=== PATIENT | male | born 1945 | race Caucasian/White ===

== ENCOUNTER 2020-09-06 08:25 | Outpatient (REF) | payer BC, SELFPAY ==
[2020-09-06 10:57] LABS: PSA,Total (Free>4and<10) 1.14 ng/mL (0.00-4.00)
[2020-09-06 11:03] LABS: Estimated Average Glucose 111 mg/dL; Hemoglobin A1c % 5.5 %
[2020-09-06 11:10] LABS: Creatinine Urine 92.01 mg/dL; Microalbumin Urine < 5.0 mg/L
[2020-09-06 11:22] LABS: Alanine Aminotransferase 19 U/L (0-40); Albumin Level 4.1 g/dL (3.5-5.0); Alkaline Phosphatase 55 U/L (39-117); Anion Gap 10 (12-20); Aspartate Amino Transferase 19 U/L (5-37); Bilirubin Total 0.6 mg/dL (0.0-1.0); Blood Urea Nitrogen 23 mg/dL (9-16); Calcium 8.7 mg/dL (8.4-10.2); Carbon Dioxide 30 mmol/L (22-29); Chloride 104 mmol/L (96-108); Cholesterol 200 mg/dL; Estimated Glomerular Filt Rate > 60; Glucose Fasting 102 mg/dL (60-99); HDL Cholesterol 54 mg/dL; LDL Cholesterol Calculated 131 mg/dl; Potassium 4.2 mmol/L (3.3-5.1); Sodium 140 mmol/L (135-145); Total Protein 6.7 g/dL (6.5-8.0); Triglycerides 78 mg/dL
[2020-09-06 11:30] LABS: TSH reflex Free T4 1.59 uIU/mL (0.32-4.0)
== END 2020-09-06 08:26 | disposition home or self-care (01) ==
LOC: HO.10HDL 08:25
PROVIDERS: Visit Provider Family Medicine
DX: Z00.00 Encounter for general adult medical examination without abnormal findings (principal); R73.01 Impaired fasting glucose; Z12.5 Encounter for screening for malignant neoplasm of prostate
CPT/HCPCS: 36415; 80053; 80061; 82043; 83036; 84153; 84443

== ENCOUNTER 2021-02-24 08:31 | Outpatient (REF) | payer BC, SELFPAY ==
[2021-02-24 11:06] LABS: Alanine Aminotransferase 16 U/L (0-40); Alkaline Phosphatase 55 U/L (39-117); Anion Gap 9 (12-20); Aspartate Amino Transferase 20 U/L (5-37); Bilirubin Total 0.8 mg/dL (0.0-1.0); Blood Urea Nitrogen 16 mg/dL (9-16); Calcium 8.9 mg/dL (8.4-10.2); Carbon Dioxide 30 mmol/L (22-29); Chloride 106 mmol/L (96-108); Cholesterol 184 mg/dL; Estimated Glomerular Filt Rate > 60; Glucose Fasting 110 mg/dL (60-99); HDL Cholesterol 58 mg/dL; LDL Cholesterol Calculated 116 mg/dl; Potassium 4.1 mmol/L (3.3-5.1); Sodium 141 mmol/L (135-145); Total Protein 6.4 g/dL (6.5-8.0); Triglycerides 52 mg/dL
[2021-02-24 11:27] LABS: TSH reflex Free T4 1.08 uIU/mL (0.32-4.0)
== END 2021-02-24 08:32 | disposition home or self-care (01) ==
LOC: HO.WFDLDS 08:31
PROVIDERS: Visit Provider Family Medicine
DX: Z00.00 Encounter for general adult medical examination without abnormal findings (principal); R73.03 Prediabetes
CPT/HCPCS: 36415; 80053; 80061; 84443

== ENCOUNTER 2021-10-24 08:21 | Outpatient (REF) | payer BC, SELFPAY ==
[2021-10-24 11:58] LABS: Estimated Average Glucose 114 mg/dL; Hemoglobin A1C 150.5851 umol/L; Hemoglobin A1c % 5.6 %
[2021-10-24 12:07] LABS: Alanine Aminotransferase 14 U/L (0-40); Alkaline Phosphatase 56 U/L (39-117); Anion Gap 9 (12-20); Aspartate Amino Transferase 15 U/L (5-37); Bilirubin Total 0.8 mg/dL (0.0-1.0); Blood Urea Nitrogen 20 mg/dL (9-16); Calcium 8.9 mg/dL (8.4-10.2); Carbon Dioxide 29 mmol/L (22-29); Chloride 108 mmol/L (96-108); Cholesterol 185 mg/dL; Estimated Glomerular Filt Rate > 60; Glucose Fasting 110 mg/dL (60-99); HDL Cholesterol 45 mg/dL; LDL Cholesterol Calculated 124 mg/dl; Potassium 4.1 mmol/L (3.3-5.1); Sodium 142 mmol/L (135-145); Total Protein 6.5 g/dL (6.5-8.0); Triglycerides 84 mg/dL
[2021-10-24 12:19] LABS: TSH reflex Free T4 1.27 uIU/mL (0.32-4.0)
== END 2021-10-24 08:22 | disposition home or self-care (01) ==
LOC: HO.WFDLDS 08:21
PROVIDERS: Visit Provider Family Medicine
DX: Z00.00 Encounter for general adult medical examination without abnormal findings (principal); R73.01 Impaired fasting glucose
CPT/HCPCS: 36415; 80053; 80061; 83036; 84443

== ENCOUNTER 2022-08-03 08:19 | Outpatient (REF) | payer BC, SELFPAY ==
[2022-08-03 11:34] LABS: Appearance Urine Clear; Color Urine Yellow; Glucose Urine UA Negative (Negative); Leukocyte Esterase Urine Negative (Negative); Nitrite Urine Negative (Negative); Urine Blood Negative (Negative); Urine Ketones Negative (Negative); Urine Protein Negative (Neg-Trace)
[2022-08-03 12:07] LABS: Creatinine Urine 127.05 mg/dL; Microalbum/Creatinine Ratio Ur 3.9 ug/mg cr
[2022-08-03 12:22] LABS: Alanine Aminotransferase 12 U/L (0-40); Alkaline Phosphatase 59 U/L (39-117); Anion Gap 12 (12-20); Aspartate Amino Transferase 19 U/L (5-37); Bilirubin Total 0.7 mg/dL (0.0-1.0); Blood Urea Nitrogen 19 mg/dL (9-16); Calcium 8.9 mg/dL (8.4-10.2); Carbon Dioxide 28 mmol/L (22-29); Chloride 106 mmol/L (96-108); Cholesterol 193 mg/dL; Estimated Glomerular Filt Rate > 60; Glucose Fasting 100 mg/dL (60-99); HDL Cholesterol 52 mg/dL; LDL Cholesterol Calculated 126 mg/dl; Potassium 4.7 mmol/L (3.3-5.1); Sodium 141 mmol/L (135-145); Total Protein 6.4 g/dL (6.5-8.0); Triglycerides 76 mg/dL
== END 2022-08-03 08:20 | disposition home or self-care (01) ==
LOC: HO.WFDLDS 08:19
PROVIDERS: Visit Provider Family Medicine
DX: Z00.00 Encounter for general adult medical examination without abnormal findings (principal); I10 Essential (primary) hypertension; Z12.5 Encounter for screening for malignant neoplasm of prostate
CPT/HCPCS: 36415; 80053; 80061; 81003; 82043; 84153; 84443

== ENCOUNTER 2023-03-23 08:22 | Outpatient (REF) | payer MEDICARE, BC, SELFPAY ==
[2023-03-23 11:16] LABS: MANUAL DIFF FLAG NO
[2023-03-23 11:32] LABS: Basophils Absolute Auto 0.1 X10*3/uL (0.0-0.2); Basophils Percent Auto 0.9 % (0-2); Eosinophils Absolute Auto 0.1 X10*3/uL (0.0-0.4); Eosinophils Percent Auto 1.8 % (0-4); Hematocrit 44.8 % (42.0-52.0); Hemoglobin 15.1 g/dl (14.0-18.0); Imm Gran Abs Auto 0.01 X10*3/uL (0.00-0.03); Imm Gran Pct Auto 0.2 % (0.0-0.4); Lymphocytes Percent Auto 17.3 % (20-40); Mean Corpuscular HGB Conc 33.7 g/dl (31.0-36.0); Mean Corpuscular Hemoglobin 31.9 pg (27.0-33.0); Mean Corpuscular Volume 94.5 fL (80.0-98.0); Mean Platelet Volume 9.2 fL (9.4-12.4); Monocytes Absolute Auto 0.5 X10*3/uL (0.1-1.2); Neutrophils Percent Auto 71.8 % (45-73); Platelet Count 207 X10*3/uL (160-400); Red Blood Count 4.74 X10*6/uL (4.60-5.80); Red Cell Distribution Width 12.7 % (11.0-16.0); White Blood Count 5.6 X10*3/uL (4.8-10.8)
[2023-03-23 12:26] LABS: Prostate Specific Antigen 1.33 ng/mL (<0.05-4.0)
[2023-03-23 12:36] LABS: Estimated Average Glucose 108 mg/dL; Hemoglobin A1c % 5.4 % (<6.0)
[2023-03-23 12:44] LABS: Alanine Aminotransferase 13 U/L (0-40); Albumin Level 3.9 g/dL (3.5-5.0); Alkaline Phosphatase 58 U/L (39-117); Anion Gap 13 (12-20); Aspartate Amino Transferase 16 U/L (5-37); Bilirubin Total 0.7 mg/dL (0.0-1.0); Blood Urea Nitrogen 18 mg/dL (9-16); Calcium 9.1 mg/dL (8.4-10.2); Carbon Dioxide 27 mmol/L (22-29); Chloride 106 mmol/L (96-108); Cholesterol 187 mg/dL (<200); Estimated Glomerular Filt Rate > 60; Glucose Random 108 mg/dL (60-115); HDL Cholesterol 54 mg/dL (>40); LDL Cholesterol Calculated 118 mg/dL (<100); Potassium 4.8 mmol/L (3.3-5.1); Sodium 141 mmol/L (135-145); Total Protein 6.6 g/dL (6.5-8.0); Triglycerides 79 mg/dL (<150)
[2023-03-23 13:00] LABS: Free T4 (Free Thyroxine) 0.84 ng/dL (0.71-1.85); Thyroid Stimulating Hormone 1.28 uIU/mL (0.32-4.0)
[2023-03-23 13:07] LABS: Creatinine Urine 151.59 mg/dL; Microalbumin Urine < 5.0 mg/L
== END 2023-03-23 08:23 | disposition home or self-care (01) ==
LOC: HO.WFDLDS 08:22
PROVIDERS: Visit Provider Family Medicine
DX: Z20.2 Contact with and (suspected) exposure to infections with a predominantly sexual mode of transmission (principal); Z12.5 Encounter for screening for malignant neoplasm of prostate
CPT/HCPCS: 36415; 80053; 80061; 82043; 83036; 84153; 84439; 84443; 84481; 85025

== ENCOUNTER 2023-03-29 10:38 | Outpatient (AMB) | payer BC, SELFPAY ==
--- NOTE | 2023-03-29 10:48 | MHC.PC.OV ---
Vital Signs 03/29/23 10:49 Height 5 ft 8 in Weight 171 lb BMI 26.0 Intake Visit Reasons: CPE with f/u labs and health maint. Allergies No Known Allergies [No Known Allergies*] Allergy (Verified 08/07/22 11:22) Tobacco use date assessed: 10/31/21 [facility] Surgical History History of eye surgery History of tonsillectomy Tear of meniscus of left knee Family History Father Parkinsons Mother Seizure Cerebral hemorrhage Brother Diabetes mellitus Sister Asthma Son No problems noted. Son No problems noted. Social History Housing: House Patient Tobacco Use Status: Never used Tobacco e-Cigarette/Vaping Use: Never Used Second Hand Smoke Exposure: No service: Yes Current occupational status: retired Current occupational exposures/hazards: No Cognitive needs: No Hearing needs: No Vision needs: No Questionnaire Thrive Questionnaire Date Thrive assessed: 08/07/22 TIFFANIE-7 AMB Questionnaire TIFFANIE-7 Date TIFFANIE - 7 assessed: 08/07/22 Source: Developed by Drs. Carlos Enrique Smith, Stella Bautista, Agus Willoughby and colleagues, with an educational frederick from [employer]. Physical exam (Primary Care) Tobacco/Smoking Status: Tobacco use Status Tobacco use date assessed 10/31/21 08/07/22 11:24 Patient Tobacco Use Status Never used Tobacco 08/07/22 11:24 e-Cigarette/Vaping Use Never Used 08/07/22 11:24 Thrive Assessment: Date of Thrive Assessment Date Thrive assessed 08/07/22 08/07/22 11:34 Coding Diagnoses
[2023-03-29 10:49] VITALS: BP 132/70; PULSE 68; O2SAT 99; BMI 26.0
--- NOTE | 2023-03-29 10:49 | MHC.PC.OV ---
Vital Signs 03/29/23 10:49 Height 5 ft 8 in Weight 171 lb BMI 26.0 BP 132/70 Blood Pressure Location Rt brachial Position Sitting Pulse 68 Pulse Source Pulse Oximeter Pulse Oximetry (%) 99 Oxygen Delivery Method Room Air Intake Visit Reasons: CPE with f/u labs and health maint. Intake Note: Patient is here for physical today. Allergies No Known Allergies [No Known Allergies*] Allergy (Verified 03/29/23 10:51) Tobacco use date assessed: 03/29/23 Fall risk assessment: No Falls in past year Last assessed Fall Risk: 03/29/23 Dental Screening Dental Screen Date: 03/29/23 Did you have a dental visit in the last 12 months?: Yes Did you have a dental problem in the last 6 months where you did not have access to dental care?: No Was dental information given to patient?: Patient has dentist HPI CPE with f/u labs and health maint. HPI Details 78 y/o male presents for a CPE with f/u labs and health maintenance. Labs were drawn 03/23/23. Reviewed labs with pt. A1c 5.4% - last A1c had been 5.7% in July. Triglycerides 79. TC 187. LDL 118. HDL 54. He is on pravastatin 40mg daily. Pt reports ear discomfort/itchiness in his ears. Pt reports complications last time he had a colonoscopy - he reports he had stopped breathing. [facility] Surgical History History of eye surgery History of tonsillectomy Tear of meniscus of left knee Family History Father Parkinsons Mother Seizure Cerebral hemorrhage Brother Diabetes mellitus Sister Asthma Son No problems noted. Son No problems noted. Social History Housing: House Patient Tobacco Use Status: Never used Tobacco e-Cigarette/Vaping Use: Never Used Second Hand Smoke Exposure: No service: Yes Current occupational status: retired Current occupational exposures/hazards: No Cognitive needs: No Hearing needs: No Vision needs: No Questionnaire Thrive Questionnaire Date Thrive assessed: 08/07/22 TIFFANIE-7 AMB Questionnaire TIFFANIE-7 Date TIFFANIE - 7 assessed: 01/09/23 Source: Developed by Drs. Carlos Enrique Smith, Stella Bautista, Agus Willoughby and colleagues, with an educational frederick from [employer]. Review of Systems Const Denies chills, Denies fatigue, Denies fever(s), Denies headache(s) and Denies weakness Eyes Denies change in vision ENT Denies dizziness, Denies headache(s), Denies hearing loss, Denies nasal congestion, Denies sinus pain, Denies sinus pressure and Denies sore throat Card Denies chest pain, Denies lightheadedness, Denies dyspnea and Denies other (palpitations) Resp Denies cough, Denies dyspnea and Denies wheezing GI Denies abdominal pain, Denies melena, Denies hematochezia, Denies change in bowel habits, Denies dyspepsia and Denies nausea Denies hematuria and Denies dysuria Musc Denies abnormal gait, Denies myalgias, Denies arthralgias, Denies numbness and Denies tingling Skin/Breast Denies rash, Denies unusual bruising and Denies wounds Neuro Denies abnormal gait, Denies dizziness, Denies headache(s), Denies memory loss, Denies numbness, Denies Sensory deficit (Neuro), Denies tingling and Denies weakness Psych Denies anxiety, Denies depression and Denies memory loss Endo Denies cold intolerance, Denies fatigue, Denies heat intolerance, Denies polydipsia and Denies polyuria Melvin/Lymph Denies easy bleeding and Denies easy bruising Aller/Immun Denies wheezing Physical exam (Primary Care) Vital Signs: Last Vital Signs Pulse 68 03/29/23 10:49 BP 132/70 03/29/23 10:49 Pulse Ox 99 03/29/23 10:49 Oxygen Delivery Method Room Air 03/29/23 10:49 BMI result Body Mass Index 26.0 Tobacco/Smoking Status: Tobacco use Status Tobacco use date assessed 03/29/23 03/29/23 10:56 Patient Tobacco Use Status Never used Tobacco 03/29/23 10:56 e-Cigarette/Vaping Use Never Used 03/29/23 10:56 Thrive Assessment: Date of Thrive Assessment Date Thrive assessed 08/07/22 03/29/23 10:56 Const General: no acute distress, well developed, alert and awake Nutritional Appearance: well nourished Orientation/consciousness: patient oriented x3 HENMT Head: Yes normocephalic and Yes atraumatic Ears: hearing grossly normal bilaterally and TM's normal bilaterally General nose exam: Normal external nose present and Normal nares present Mouth: Normal oral and palatal mucosa present and moist mucous membranes Teeth and gingiva: dentition normal Throat: Yes posterior oropharynx normal Eyes General: appearance normal, both eyes and all related structures Pupils: Equal, round and reactive pupils present and Pupil accommodation reflex normal EOM: EOMs intact bilaterally Neck Neck: Yes normal visual inspection, Yes no lymphadenopathy and Yes trachea midline Thyroid: Thyroid normal Carotids: no bruits Lymphatic: no lymphadenopathy noted Chest Chest palpation & inspection: normal inspection of the chest Resp Effort & Inspection: normal respiratory effort Auscultation: clear to auscultation bilaterally Cardio Rate: regular rate Rhythm: regular rhythm Heart sounds: S1 normal heart sound present, S2 normal heart sound present, no gallops, no murmurs and no rubs Bruits: no abdominal aortic bruits and no carotid bruits GI Palpation (GI): No Abdominal aortic bruit present, Soft to palpation, nontender, No hepatosplenomegaly present and No Rebound tenderness present Auscultation: normal bowel sounds General: Yes no CVA tenderness Back/Spine/Pelvis Back: no CVA tenderness Cervical Spine: cervical ROM normal and No Cervical spine tenderness Thoracic/Lumbar Spine: thoraco-lumbar ROM normal, No pain with thoraco-lumbar ROM, No thoracic spinal tenderness and No lumbar spinal tenderness Skin Lesions: no lesions Rashes: no rashes Trauma: no lacerations or abrasions Wounds: no wounds Nails: normal Neuro General: patient oriented x3 Cranial nerves: Yes Equal, round and reactive pupils present Cognition (Neuro): normal cognition Gait exam (Neuro): Normal gait present Motor exam (neuro): 5/5 motor strength present throughout Sensory Exam: No Sensory deficit (Neuro) Deep tendon reflexes (DTR's): Right patellar reflex intensity grade: 2+ and Left patellar reflex intensity grade: 2+ Extrem General: Yes normal to inspection and No edema Psych Appearance: grossly normal Affect: normal affect Attitude: cooperative Thought process: Normal thought process present Assessment and Plan Assessment & Plan (1) Annual physical exam: Code(s): Z00.00 - Encounter for general adult medical examination without abnormal findings Plan: 78-year-old male presents for complete physical exam Encouraged a healthy diet with active lifestyle and plenty of exercise (2) Pre-diabetes: Code(s): R73.03 - Prediabetes Plan: A1c is improved Continue diet low in sugars and starches. Continue weight control and exercise (3) Elevated LDL cholesterol level: Code(s): E78.00 - Pure hypercholesterolemia, unspecified Plan: Well controlled on pravastatin Continue medication as prescribed (4) Ear discomfort: Code(s): H92.09 - Otalgia, unspecified ear Plan: He can try Debrox drops or 50/50 dilute hydrogen peroxide with some drops of baby oil in it If not improving, he can let me know and we will evaluate further and consider prescription medication (5) Screening for colon cancer: Code(s): Z12.11 - Encounter for screening for malignant neoplasm of colon Plan: Followed by [facility] [place] GI History of polyps Follow-up with GI as recommended (6) Screening for prostate cancer: Code(s): Z12.5 - Encounter for screening for malignant neoplasm of prostate Plan: PSA is within normal limits Orders: Orders Comprehensive [place]. Panel Fast Today Z00.00 - Encounter for general adult medical examination without abnormal findings Lipid Panel Today Z00.00 - Encounter for general adult medical examination without abnormal findings Microalbumin, Random (w Creat) Today I10 - Essential (primary) hypertension Complete Blood Count Auto Diff Today Z00.00 - Encounter for general adult medical examination without abnormal findings UA and rflx microscopic Today Z00.00 - Encounter for general adult medical examination without abnormal findings Coding Level of Care Code Est Pt Level 3 (52712) Est Pt Prev Care >65y(80948) Diagnoses Annual physical exam Z00.00 Pre-diabetes R73.03 Elevated LDL cholesterol level E78.00 Ear discomfort H92.09 Screening for colon cancer Z12.11 Screening for prostate cancer Z12.5
== END 2023-03-29 11:54 | disposition home or self-care (01) ==
PROVIDERS: PCP Family Medicine; Visit Provider Family Medicine
DX: Z00.00 Encounter for general adult medical examination without abnormal findings (principal); R73.03 Prediabetes; E78.00 Pure hypercholesterolemia, unspecified; H92.03 Otalgia, bilateral
CPT/HCPCS: 99397

== ENCOUNTER 2023-09-10 08:53 | Outpatient (REF) | payer BC, SELFPAY ==
[2023-09-10 11:25] LABS: MANUAL DIFF FLAG NO
[2023-09-10 11:42] LABS: Appearance Urine Clear; Color Urine Yellow; Glucose Urine UA Negative (Negative); Leukocyte Esterase Urine Negative (Negative); Nitrite Urine Negative (Negative); Specific Gravity - Urine 1.025 (1.005-1.025); Urine Blood Negative (Negative); Urine Ketones Negative (Negative); Urine Protein Negative (Neg-Trace)
[2023-09-10 12:05] LABS: Basophils Percent Auto 0.7 % (0-2); Eosinophils Absolute Auto 0.1 X10*3/uL (0.0-0.4); Eosinophils Percent Auto 2.3 % (0-4); Hematocrit 45.2 % (42.0-52.0); Hemoglobin 15.3 g/dl (14.0-18.0); Imm Gran Abs Auto 0.01 X10*3/uL (0.00-0.03); Imm Gran Pct Auto 0.2 % (0.0-0.4); Lymphocytes Absolute Auto 1.1 X10*3/uL (1.2-4.9); Lymphocytes Percent Auto 19.1 % (20-40); Mean Corpuscular HGB Conc 33.8 g/dl (31.0-36.0); Mean Corpuscular Hemoglobin 31.9 pg (27.0-33.0); Mean Corpuscular Volume 94.4 fL (80.0-98.0); Mean Platelet Volume 9.3 fL (9.4-12.4); Monocytes Absolute Auto 0.5 X10*3/uL (0.1-1.2); Monocytes Percent Auto 8.2 % (2-11); Neutrophils Absolute Auto 4.2 x10*3/uL (2.0-8.3); Neutrophils Percent Auto 69.5 % (45-73); Platelet Count 229 X10*3/uL (160-400); Red Blood Count 4.79 X10*6/uL (4.60-5.80); Red Cell Distribution Width 12.8 % (11.0-16.0)
[2023-09-10 12:39] LABS: Creatinine Urine 146.41 mg/dL; Microalbum/Creatinine Ratio Ur 4.7 ug/mg cr (<30)
[2023-09-10 12:56] LABS: Alanine Aminotransferase 13 U/L (0-40); Albumin Level 3.9 g/dL (3.5-5.0); Alkaline Phosphatase 56 U/L (39-117); Anion Gap 13 (12-20); Aspartate Amino Transferase 15 U/L (5-37); Bilirubin Total 0.5 mg/dL (0.0-1.0); Blood Urea Nitrogen 18 mg/dL (9-16); Calcium 9.1 mg/dL (8.4-10.2); Carbon Dioxide 29 mmol/L (22-29); Chloride 106 mmol/L (96-108); Cholesterol 184 mg/dL (<200); Estimated Glomerular Filt Rate > 60; Glucose Fasting 97 mg/dL (60-99); HDL Cholesterol 48 mg/dL (>40); LDL Cholesterol Calculated 114 mg/dL (<100); Potassium 4.5 mmol/L (3.3-5.1); Sodium 143 mmol/L (135-145); Total Protein 6.8 g/dL (6.5-8.0); Triglycerides 110 mg/dL (<150)
== END 2023-09-10 08:54 | disposition home or self-care (01) ==
LOC: HO.WFDLDS 08:53
PROVIDERS: Visit Provider Family Medicine
DX: Z00.00 Encounter for general adult medical examination without abnormal findings (principal); I10 Essential (primary) hypertension
CPT/HCPCS: 36415; 80053; 80061; 81003; 82043; 82570; 85025

== ENCOUNTER 2023-09-12 10:58 | Outpatient (AMB) | payer BC, SELFPAY ==
[2023-09-12 11:25] VITALS: BP 138/78; PULSE 76; O2SAT 98; BMI 27.1
--- NOTE | 2023-09-12 11:25 | A.OFFPC_ITS ---
Vital Signs 09/12/23 11:25 Height 5 ft 8 in Weight 178 lb BMI 27.1 BP 138/78 Blood Pressure Location Lt brachial Position Sitting Pulse 76 Pulse Source Pulse Oximeter Pulse Oximetry (%) 98 Oxygen Delivery Method Room Air Intake Visit Reasons: f/u chronic conditions Intake Note: Patient is here to follow up on chronic conditions. Allergies No Known Allergies [No Known Allergies*] Allergy (Verified 09/12/23 11:27) Tobacco use date assessed: 09/12/23 Fall risk assessment: 1 Fall in past year Last assessed Fall Risk: 09/12/23 Dental Screening Dental Screen Date: 09/12/23 Did you have a dental visit in the last 12 months?: Yes Did you have a dental problem in the last 6 months where you did not have access to dental care?: No Was dental information given to patient?: Patient has dentist HPI f/u chronic conditions HPI Details 78 y/o male [facility]. Labs were drawn 09/10/23. Reviewed labs with pt. Triglycerides 110. TC 184. LDL 114. HDL 48. He is on pravastatin 40mg daily. [facility] Surgical History Tear of meniscus of left knee History of tonsillectomy History of eye surgery Family History Father Parkinsons Mother Seizure Cerebral hemorrhage Brother Diabetes mellitus Sister Asthma Son No problems noted. Son No problems noted. Social History Housing: House Patient Tobacco Use Status: Never used Tobacco e-Cigarette/Vaping Use: Never Used Second Hand Smoke Exposure: No service: Yes Current occupational status: retired Current occupational exposures/hazards: No Cognitive needs: No Hearing needs: No Vision needs: No Questionnaire PHQ-9 Over the last 2 weeks, how often have you been bothered by any of the following problems? 1. Little interest or pleasure in doing things: not at all 2. Feeling down, depressed, or hopeless: not at all 3. Trouble falling or staying asleep, or sleeping too much: not at all 4. Feeling tired or having little energy: not at all 5. Poor appetite or overeating: not at all 6. Feeling bad about yourself - or that you are a failure or have let yourself or your family down: not at all 7. Trouble concentrating on things, such as reading the newspaper or watching television: not at all 8. Moving or speaking so slowly that other people could have noticed. Or the opposite - being so fidgety or restless that you have been moving around a lot more than usual: not at all 9. Thoughts that you would be better off or of hurting yourself in some way: not at all Total score: 0 Depression Screening Interpretation: Negative Depression Screening Done: Yes [id number] - PHQ-9 Billing: Yes Source: Developed by Drs. Carlos Enrique Smith, Stella Bautista, Agus Willoughby and colleagues, with an educational frederick from [employer]. Thrive Questionnaire Date Thrive assessed: 08/07/22 I am a: Patient What is your living situation today?: I have a steady place to live Within the past 12 months, did the food you bought not last and you didn't have the money to get more?: Never true Within the past 12 months, did you worry whether your food would run out before you got money to buy more?: Never true Do you have trouble paying for medicines?: No Do you have trouble getting transportation to medical appointments?: No Do you have trouble paying your heating and electricity bill?: No Do you have trouble taking care of your child, family member or friend?: No Do you have trouble with day-to-day activities such as bathing, preparing meals, shopping, managing finances, etc.?: No Are you currently unemployed and looking for a job?: No Are you interested in more education?: No THRIVE Score: 0 AUDIT C Alcohol Use Questionnaire (AUDIT-C) 1. How often do you have a drink containing alcohol?: Monthly or less 2. How many drinks containing alcohol do you have on a typical day when you are drinking?: 1 or 2 3. How often do you have six or more drinks on one occasion?: Never Total Score: 1 TIFFANIE-7 AMB Questionnaire TIFFANIE-7 Date TIFFANIE - 7 assessed: 09/12/23 Feeling nervous, anxious, or on edge: 0 = Not at all Not being able to stop or control worryin = Not at all Worrying too much about different things: 0 = Not at all Trouble relaxin = Not at all Being so restless that it is hard to sit still: 0 = Not at all Becoming easily annoyed or irritable: 0 = Not at all Feeling afraid as if something awful might happen: 0 = Not at all Total TIFFANIE-7 score (0-4 normal; 5-9 mild; 10-14 moderate; 15-21 severe): 0 Source: Developed by Drs. Carlos Enrique Smith, Stella Bautista, Agus Willoughby and colleagues, with an educational frederick from [employer]. TIFFANIE-7 Assessment Billing TIFFANIE-7 Assessment Tool: TIFFANIE-7 Assessment [id number] Review of Systems Const Denies chills, Denies fatigue, Denies fever(s), Denies headache(s) and Denies weakness ENT Denies dizziness and Denies headache(s) Card Denies chest pain, Denies lightheadedness, Denies dyspnea and Denies other (Pa lpitations) Resp Denies cough, Denies dyspnea, Denies wheezing and Denies other ( shortness of breath) Musc Denies numbness and Denies tingling Neuro Denies dizziness, Denies headache(s), Denies numbness, Denies tingling, Denies paresthesias and Denies weakness Psych Denies anxiety and Denies depression Endo Denies fatigue Aller/Immun Denies wheezing Physical exam (Primary Care) Vital Signs: Last Vital Signs Pulse 76 09/12/23 11:25 BP 138/78 09/12/23 11:25 Pulse Ox 98 09/12/23 11:25 Oxygen Delivery Method Room Air 09/12/23 11:25 BMI result Body Mass Index 27.1 Tobacco/Smoking Status: Tobacco use Status Tobacco use date assessed 09/12/23 09/12/23 11:28 Patient Tobacco Use Status Never used Tobacco 09/12/23 11:28 e-Cigarette/Vaping Use Never Used 09/12/23 11:28 PHQ-9: PHQ-9 Score PHQ-9: Total score 0 09/12/23 12:13 Depression Screening Interpretation: Negative Thrive Assessment: Date of Thrive Assessment Date Thrive assessed 08/07/22 09/12/23 11:28 Const General: no acute distress and well developed Nutritional Appearance: well nourished Orientation/consciousness: patient oriented x3 [facility] Head: Yes normocephalic and Yes atraumatic Eyes General: appearance normal, both eyes and all related structures Pupils: Equal, round and reactive pupils present EOM: EOMs intact bilaterally Resp Effort & Inspection: normal respiratory effort Auscultation: clear to auscultation bilaterally Cardio Rate: regular rate Rhythm: regular rhythm Heart sounds: S1 normal heart sound present, S2 normal heart sound present, no gallops, no murmurs and no rubs Neuro General: patient oriented x3 and gait normal Cranial nerves: Yes Equal, round and reactive pupils present Psych Affect: normal affect Assessment and Plan Assessment & Plan (1) Elevated LDL cholesterol level: Code(s): E78.00 - Pure hypercholesterolemia, unspecified Plan: Well?controlled?on?pravastatin Continue?current?medication (2) Elevated BP without diagnosis of hypertension: Code(s): R03.0 - Elevated blood-pressure reading, without diagnosis of hypertension Plan: Blood?pressure?is?controlled.??Goal?is?less?than?140/90 Continue?diet?control,?watch?salt?and?sodium?a nd?work?on?exercise?and?weight?control. Patient?gained?about?7?lb?and?he?will?work?on?this Orders: Orders TSH reflex Free T4 Today Z00.00 - Encounter for general adult medical examination without abnormal findings Lipid Panel Today Z00.00 - Encounter for general adult medical examination without abnormal findings Complete Blood Count Auto Diff Today Z00.00 - Encounter for general adult medical examination without abnormal findings Prostate Specific Antigen Scr Today Z12.5 - Encounter for screening for malignant neoplasm of prostate Comprehensive [place]. Panel Fast Today Z00.00 - Encounter for general adult medical examination without abnormal findings Hemoglobin A1c Today R73.01 - Impaired fasting glucose UA and rflx microscopic Today Z00.00 - Encounter for general adult medical examination without abnormal findings Medications: Refilled sildenafil administer 30 minutes to 4 hours before activity 100 mg PO DAILY PRN 30 tabs 4RF sexual activity 30 days omeprazole 20 mg PO DAILY 90 caps 3RF 90 days pravastatin 40 mg PO DAILY 90 tabs 3RF 90 days Coding Level of Care Code Est Pt Level 3 (47025) Diagnoses Elevated LDL cholesterol level E78.00 Elevated BP without diagnosis of hypertension R03.0 Additional Codes TIFFANIE-7 Assessment Billing - TIFFANIE-7 Assessment Tool: TIFFANIE-7 Assessment [id number] ([id number])
== END 2023-09-12 12:28 | disposition home or self-care (01) ==
PROVIDERS: PCP Family Medicine; Visit Provider Family Medicine
DX: E78.00 Pure hypercholesterolemia, unspecified (principal); R03.0 Elevated blood-pressure reading, without diagnosis of hypertension
CPT/HCPCS: 99213

== ENCOUNTER 2024-03-28 11:29 | Outpatient (REF) | payer BC, SELFPAY ==
[2024-03-28 14:43] LABS: Appearance Urine Clear; Color Urine Yellow; Glucose Urine UA Negative (Negative); Leukocyte Esterase Urine Negative (Negative); Nitrite Urine Negative (Negative); Urine Blood Negative (Negative); Urine Ketones Negative (Negative); Urine Protein Negative (Neg-Trace)
[2024-03-28 14:51] LABS: MANUAL DIFF FLAG NO
[2024-03-28 14:54] LABS: Basophils Absolute Auto 0.1 X10*3/uL (0.0-0.2); Eosinophils Absolute Auto 0.1 X10*3/uL (0.0-0.4); Eosinophils Percent Auto 1.9 % (0-4); Hematocrit 45.4 % (42.0-52.0); Hemoglobin 15.7 g/dl (14.0-18.0); Imm Gran Abs Auto 0.01 X10*3/uL (0.00-0.03); Imm Gran Pct Auto 0.2 % (0.0-0.4); Lymphocytes Absolute Auto 1.3 X10*3/uL (1.2-4.9); Lymphocytes Percent Auto 23.3 % (20-40); Mean Corpuscular HGB Conc 34.6 g/dl (31.0-36.0); Mean Corpuscular Hemoglobin 32.6 pg (27.0-33.0); Mean Corpuscular Volume 94.4 fL (80.0-98.0); Mean Platelet Volume 9.3 fL (9.4-12.4); Monocytes Absolute Auto 0.5 X10*3/uL (0.1-1.2); Neutrophils Absolute Auto 3.8 x10*3/uL (2.0-8.3); Neutrophils Percent Auto 65.6 % (45-73); Platelet Count 223 X10*3/uL (160-400); Red Blood Count 4.81 X10*6/uL (4.60-5.80); Red Cell Distribution Width 12.5 % (11.0-16.0); White Blood Count 5.7 X10*3/uL (4.8-10.8)
[2024-03-28 15:15] LABS: Alanine Aminotransferase 15 U/L (0-40); Albumin Level 4.1 g/dL (3.5-5.0); Alkaline Phosphatase 52 U/L (39-117); Anion Gap 11 (12-20); Aspartate Amino Transferase 19 U/L (5-37); Bilirubin Total 0.7 mg/dL (0.0-1.0); Blood Urea Nitrogen 16 mg/dL (9-16); Calcium 9.4 mg/dL (8.4-10.2); Carbon Dioxide 28 mmol/L (22-29); Chloride 106 mmol/L (96-108); Cholesterol 184 mg/dL (<200); Estimated Glomerular Filt Rate > 60; Glucose Fasting 103 mg/dL (60-99); HDL Cholesterol 54 mg/dL (>40); LDL Cholesterol Calculated 115 mg/dL (<100); Potassium 4.4 mmol/L (3.3-5.1); Sodium 141 mmol/L (135-145); Total Protein 6.8 g/dL (6.5-8.0); Triglycerides 77 mg/dL (<150)
[2024-03-28 15:20] LABS: Estimated Average Glucose 117 mg/dL; Hemoglobin A1c % 5.7 % (<6.0)
[2024-03-28 15:26] LABS: Prostate Specific Antigen Scr 1.33 ng/mL (<0.05-4.0)
[2024-03-28 15:33] LABS: TSH reflex Free T4 1.02 uIU/mL (0.32-4.0)
== END 2024-03-28 11:30 | disposition home or self-care (01) ==
LOC: HO.WFDLDS 11:29
PROVIDERS: Visit Provider Family Medicine
DX: Z00.00 Encounter for general adult medical examination without abnormal findings (principal); Z12.5 Encounter for screening for malignant neoplasm of prostate; R73.01 Impaired fasting glucose
CPT/HCPCS: 36415; 80053; 80061; 81003; 83036; 84153; 84443; 85025

== ENCOUNTER 2024-04-01 08:52 | Outpatient (AMB) | payer BC, SELFPAY ==
--- NOTE | 2024-04-01 08:59 | A.OFFPC_ITS ---
Vital Signs 04/01/24 09:06 Height 5 ft 8 in Weight 176 lb 8 oz BMI 26.8 BP 120/60 Blood Pressure Location Lt brachial Position Sitting Respiration 12 Pulse 80 Pulse Source Pulse Oximeter Temp 97.5 F Temp Source Tympanic Pulse Oximetry (%) 97 Oxygen Delivery Method Room Air Intake Visit Reasons: extended?exam??follow-up?labs?health?maintenance Intake Note: CPE Allergies No Known Allergies [No Known Allergies*] Allergy (Verified 04/01/24 09:01) Tobacco use date assessed: 04/01/24 Fall risk assessment: No Falls in past year Last assessed Fall Risk: 04/01/24 Dental Screening Dental Screen Date: 04/01/24 Did you have a dental visit in the last 12 months?: Yes Did you have a dental problem in the last 6 months where you did not have access to dental care?: No Was dental information given to patient?: Patient has dentist HPI extended?exam??follow-up?labs?health?maintenance HPI Details 79 y/o male presents for a CPE with f/u labs and health maintenance. Labs were drawn 03/28/24. Reviewed labs with pt. A1c 5.7%. Triglycerides 77. TC 184. LDL 115. HDL 54. PSA 1.33. TSH 1.02. HPI Comments History of Present Illness Details Documentation assistance for Alton Vegas MD, was provided by Williams Augustin, Transit Driver on 04/01/2024 at 9:21 AM EST. I, Dr. Vegas, have read, observed, and verified documentation. [facility] Surgical History Tear of meniscus of left knee History of tonsillectomy History of eye surgery Family History Father Parkinsons Mother Seizure Cerebral hemorrhage Brother Diabetes mellitus Sister Asthma Son No problems noted. Son No problems noted. Social History (Updated 04/01/24 @ 09:04 by Chilo Chaparro) Housing: House Patient Tobacco Use Status: Never used Tobacco e-Cigarette/Vaping Use: Never Used Second Hand Smoke Exposure: No Use of substances other than those prescribed or required for medical reasons: No service: Yes Current occupational status: retired Current occupational exposures/hazards: No Cognitive needs: No Hearing needs: No Vision needs: No Questionnaire PHQ-9 Over the last 2 weeks, how often have you been bothered by any of the following problems? 1. Little interest or pleasure in doing things: not at all 2. Feeling down, depressed, or hopeless: not at all 3. Trouble falling or staying asleep, or sleeping too much: several days 4. Feeling tired or having little energy: not at all 5. Poor appetite or overeating: not at all 6. Feeling bad about yourself - or that you are a failure or have let yourself or your family down: not at all 7. Trouble concentrating on things, such as reading the newspaper or watching television: not at all 8. Moving or speaking so slowly that other people could have noticed. Or the opposite - being so fidgety or restless that you have been moving around a lot more than usual: not at all 9. Thoughts that you would be better off or of hurting yourself in some way: not at all Total score: 1 Depression Screening Interpretation: Negative Depression Screening Done: Yes [id number] - PHQ-9 Billing: Yes Source: Developed by Drs. Carlos Enrique Smith, Stella Bautista, Agus Willoughby and colleagues, with an educational frederick from [employer]. Thrive Questionnaire Date Thrive assessed: 04/01/24 I am a: Patient What is your living situation today?: I have a steady place to live Within the past 12 months, did the food you bought not last and you didn't have the money to get more?: Never true Within the past 12 months, did you worry whether your food would run out before you got money to buy more?: Never true Do you have trouble paying for medicines?: No Do you have trouble getting transportation to medical appointments?: No Do you have trouble paying your heating and electricity bill?: No Do you have trouble taking care of your child, family member or friend?: No Do you have trouble with day-to-day activities such as bathing, preparing meals, shopping, managing finances, etc.?: No Are you currently unemployed and looking for a job?: No Are you interested in more education?: No Please select the resources that you would like help with: None Currently or been in a relationship where the following occur: No concerns reported THRIVE Score: 0 AUDIT C Alcohol Use Questionnaire (AUDIT-C) 1. How often do you have a drink containing alcohol?: 2-3 times a week 2. How many drinks containing alcohol do you have on a typical day when you are drinking?: 1 or 2 3. How often do you have six or more drinks on one occasion?: Never Total Score: 3 Score Reviewed/Action Taken: Yes TIFFANIE-7 AMB Questionnaire TIFFANIE-7 Date TIFFANIE - 7 assessed: 04/01/24 Feeling nervous, anxious, or on edge: 0 = Not at all Not being able to stop or control worryin = Not at all Worrying too much about different things: 0 = Not at all Trouble relaxin = Not at all Being so restless that it is hard to sit still: 0 = Not at all Becoming easily annoyed or irritable: 0 = Not at all Feeling afraid as if something awful might happen: 0 = Not at all Total TIFFANIE-7 score (0-4 normal; 5-9 mild; 10-14 moderate; 15-21 severe): 0 Source: Developed by Drs. Carlos Enrique Smith, Stella Bautista, Agus Willoughby and colleagues, with an educational frederick from [employer]. TIFFANIE-7 Assessment Billing TIFFANIE-7 Assessment Tool: TIFFANIE-7 Assessment 03016 Review of Systems Const Denies chills, Denies fatigue, Denies fever(s), Denies headache(s) and Denies weakness Eyes Denies change in vision ENT Denies dizziness, Denies headache(s), Denies hearing loss, Denies nasal congestion, Denies sinus pain, Denies sinus pressure and Denies sore throat Card Denies chest pain, Denies lightheadedness, Denies dyspnea and Denies other (palpitations) Resp Denies cough, Denies dyspnea and Denies wheezing GI Denies abdominal pain, Denies melena, Denies hematochezia, Denies change in bowel habits, Denies dyspepsia and Denies nausea Denies hematuria and Denies dysuria Musc Denies abnormal gait, Denies myalgias, Denies arthralgias, Denies numbness and Denies tingling Skin/Breast Denies rash, Denies unusual bruising and Denies wounds Neuro Denies abnormal gait, Denies dizziness, Denies headache(s), Denies memory loss, Denies numbness, Denies Sensory deficit (Neuro), Denies tingling and Denies weakness Psych Denies anxiety, Denies depression and Denies memory loss Endo Denies cold intolerance, Denies fatigue, Denies heat intolerance, Denies polydipsia and Denies polyuria Melvin/Lymph Denies easy bleeding and Denies easy bruising Aller/Immun Denies wheezing Physical exam (Primary Care) Vital Signs: Last Vital Signs Temp 97.5 F 04/01/24 09:06 Pulse 80 04/01/24 09:06 Resp 12 04/01/24 09:06 BP 120/60 04/01/24 09:06 Pulse Ox 97 04/01/24 09:06 Oxygen Delivery Method Room Air 04/01/24 09:06 BMI result Body Mass Index 26.8 Tobacco/Smoking Status: Tobacco use Status Tobacco use date assessed 04/01/24 04/01/24 09:09 Patient Tobacco Use Status Never used Tobacco 04/01/24 09:04 e-Cigarette/Vaping Use Never Used 04/01/24 09:04 PHQ-9: PHQ-9 Score PHQ-9: Total score 1 04/01/24 09:21 Depression Screening Interpretation: Negative Thrive Assessment: Date of Thrive Assessment Date Thrive assessed 04/01/24 04/01/24 09:09 Currently or been in a relationship where the following occur: No concerns reported Const General: no acute distress, well developed, alert and awake Nutritional Appearance: well nourished Orientation/consciousness: patient oriented x3 HENMT Head: Yes normocephalic and Yes atraumatic Ears: hearing grossly normal bilaterally and TM's normal bilaterally General nose exam: Normal external nose present and Normal nares present Mouth: Normal oral and palatal mucosa present and moist mucous membranes Teeth and gingiva: dentition normal Throat: Yes posterior oropharynx normal Eyes General: appearance normal, both eyes and all related structures Pupils: Equal, round and reactive pupils present and Pupil accommodation reflex normal EOM: EOMs intact bilaterally Neck Neck: Yes normal visual inspection, Yes no lymphadenopathy and Yes trachea midline Thyroid: Thyroid normal Carotids: no bruits Lymphatic: no lymphadenopathy noted Chest Chest palpation & inspection: normal inspection of the chest Resp Effort & Inspection: normal respiratory effort Auscultation: clear to auscultation bilaterally Cardio Rate: regular rate Rhythm: regular rhythm Heart sounds: S1 normal heart sound present, S2 normal heart sound present, no gallops, no murmurs and no rubs Bruits: no abdominal aortic bruits and no carotid bruits GI Palpation (GI): No Abdominal aortic bruit present, Soft to palpation, nontender, No hepatosplenomegaly present and No Rebound tenderness present Auscultation: normal bowel sounds General: Yes no CVA tenderness Back/Spine/Pelvis Back: no CVA tenderness Cervical Spine: cervical ROM normal and No Cervical spine tenderness Thoracic/Lumbar Spine: thoraco-lumbar ROM normal, No pain with thoraco-lumbar ROM, No thoracic spinal tenderness and No lumbar spinal tenderness Skin Lesions: no lesions Rashes: no rashes Trauma: no lacerations or abrasions Wounds: no wounds Nails: normal Neuro General: patient oriented x3 Cranial nerves: Yes Equal, round and reactive pupils present Cognition (Neuro): normal cognition Gait exam (Neuro): Normal gait present Motor exam (neuro): 5/5 motor strength present throughout Sensory Exam: No Sensory deficit (Neuro) Deep tendon reflexes (DTR's): Right patellar reflex intensity grade: 2+ and Left patellar reflex intensity grade: 2+ Extrem General: Yes normal to inspection and No edema Psych Appearance: grossly normal Affect: normal affect Attitude: cooperative Thought process: Normal thought process present Assessment and Plan Assessment & Plan (1) Annual physical exam: Code(s): Z00.00 - Encounter for general adult medical examination without abnormal findings Plan: 79-year-old?male?presents?for?complete?physical?exam Encouraged?healthy?diet?with?active?lifestyle?and?plenty?of?exercise (2) Pre-diabetes: Code(s): R73.03 - Prediabetes Plan: A1c?climbed?and?is?in?pre?diabetes?range Encouraged?diet?lower?in?sugars?and?starches (3) Allergic rhinitis: Code(s): J30.9 - Allergic rhinitis, unspecified Plan: He?can?try?an?OTC?nasal?steroid (4) GERD (gastroesophageal reflux disease): Code(s): K21.9 - Gastro-esophageal reflux disease without esophagitis Plan: Continue?omeprazole (5) Elevated LDL cholesterol level: Code(s): E78.00 - Pure hypercholesterolemia, unspecified Plan: LDL?cholesterol?is?above?goal?of?less?than?100 HDL?is?good?and?ratios?are?good No?medication?changes?made?today Continue?pravastatin Work?at?diet?lower?in?saturated?fats?and?cholesterol (6) Screening for colon cancer: Code(s): Z12.11 - Encounter for screening for malignant neoplasm of colon Plan: Patient?says?he?had?a?colonoscopy?a?few?years?back?with??[facility] Will?request?report (7) Screening for prostate cancer: Code(s): Z12.5 - Encounter for screening for malignant neoplasm of prostate Plan: PSA?is?within?normal?limits Continue?annual?screening Coding Level of Care Code Est Pt Level 3 (69176) Est Pt Prev Care >65y(17919) Diagnoses Annual physical exam Z00.00 Pre-diabetes R73.03 Allergic rhinitis J30.9 GERD (gastroesophageal reflux disease) K21.9 Elevated LDL cholesterol level E78.00 Screening for colon cancer Z12.11 Screening for prostate cancer Z12.5 Additional Codes TIFFANIE-7 Assessment Billing - TIFFANIE-7 Assessment Tool: TIFFANIE-7 Assessment 50734 ([id number])
[2024-04-01 09:06] VITALS: BP 120/60; PULSE 80; RESP 12; TEMP 36.4; O2SAT 97; BMI 26.8
== END 2024-04-01 09:58 | disposition home or self-care (01) ==
PROVIDERS: PCP Family Medicine; Visit Provider Family Medicine
DX: Z00.00 Encounter for general adult medical examination without abnormal findings (principal); R73.03 Prediabetes; J30.9 Allergic rhinitis, unspecified; K21.9 Gastro-esophageal reflux disease without esophagitis; E78.00 Pure hypercholesterolemia, unspecified; Z12.11 Encounter for screening for malignant neoplasm of colon; Z12.5 Encounter for screening for malignant neoplasm of prostate
CPT/HCPCS: 99397

== ENCOUNTER 2024-10-23 08:30 | Outpatient (AMB) | payer BC, SELFPAY ==
--- NOTE | 2024-10-23 08:32 | MHC.PC.OV ---
Vital Signs 10/23/24 08:40 Height 5 ft 8 in Weight 177 lb 4 oz BMI 26.9 BP 130/70 Blood Pressure Location Rt brachial Position Sitting Respiration 14 Pulse 78 Pulse Source Pulse Oximeter Temp 98.2 F Temp Source Oral Pulse Oximetry (%) 96 Oxygen Delivery Method Room Air Intake Visit Reasons: f/u pre-diabetes Intake Note: patient is scheduled for pre-dm follow up Corporate Claims Examiner Required: No Allergies No Known Allergies [No Known Allergies*] Allergy (Verified 10/23/24 08:39) Medication List - Last Reconciled 10/23/24 by Alton Vegas MD clobetasol 0.05% 1 appl topical DAILY PRN 30 days omeprazole 20 mg PO DAILY 90 days pravastatin 40 mg PO DAILY 90 days sildenafil 100 mg PO DAILY PRN 30 days Tobacco use date assessed: 04/01/24 Dental Screening Dental Screen Date: 04/01/24 HPI f/u pre-diabetes HPI Details 79 y/o male presents to f/u pre-diabetes. A1c today 5.8%. Prior A1c 5.7%. Blood pressure today 130/70, 78p. HPI Comments History of Present Illness Details Documentation assistance for Alton Vegas MD, was provided by Williams Augustin,? Sexual Assault Social Worker on 10/23/2024 at 9:23 AM GILMER. I, Dr. Vegas, have read, observed, and verified documentation. ?? [facility] Surgical History Tear of meniscus of left knee History of tonsillectomy History of eye surgery Family History Father Parkinsons Mother Seizure Cerebral hemorrhage Brother Diabetes mellitus Sister Asthma Son No problems noted. Son No problems noted. Social History (Updated 04/01/24 @ 09:04 by ALYSSA Batista) Housing: House Patient Tobacco Use Status: Never used Tobacco e-Cigarette/Vaping Use: Never Used Second Hand Smoke Exposure: No service: Yes Current occupational status: retired Current occupational exposures/hazards: No Cognitive needs: No Hearing needs: No Vision needs: No Questionnaire PHQ-9 Over the last 2 weeks, how often have you been bothered by any of the following problems? 1. Little interest or pleasure in doing things: not at all 2. Feeling down, depressed, or hopeless: not at all 3. Trouble falling or staying asleep, or sleeping too much: several days 4. Feeling tired or having little energy: several days 5. Poor appetite or overeating: not at all 6. Feeling bad about yourself - or that you are a failure or have let yourself or your family down: not at all 7. Trouble concentrating on things, such as reading the newspaper or watching television: not at all 8. Moving or speaking so slowly that other people could have noticed. Or the opposite - being so fidgety or restless that you have been moving around a lot more than usual: not at all 9. Thoughts that you would be better off or of hurting yourself in some way: not at all Total score: 2 Source: Developed by Drs. Carlos Enrique Smith, Stella Bautista, Agus Willoughby and colleagues, with an educational frederick from [employer]. Thrive Questionnaire Date Thrive assessed: 04/01/24 I am a: Patient What is your living situation today?: I have a steady place to live Within the past 12 months, did the food you bought not last and you didn't have the money to get more?: Never true Within the past 12 months, did you worry whether your food would run out before you got money to buy more?: Never true Do you have trouble paying for medicines?: No Do you have trouble getting transportation to medical appointments?: No Do you have trouble paying your heating and electricity bill?: No Do you have trouble taking care of your child, family member or friend?: No Do you have trouble with day-to-day activities such as bathing, preparing meals, shopping, managing finances, etc.?: No Are you currently unemployed and looking for a job?: No Are you interested in more education?: No Please select the resources that you would like help with: None Currently or been in a relationship where the following occur: No concerns reported THRIVE Score: 0 AUDIT C Alcohol Use Questionnaire (AUDIT-C) 1. How often do you have a drink containing alcohol?: Monthly or less 2. How many drinks containing alcohol do you have on a typical day when you are drinking?: 1 or 2 3. How often do you have six or more drinks on one occasion?: Never Total Score: 1 TIFFANIE-7 AMB Questionnaire TIFFANIE-7 Date TIFFANIE - 7 assessed: 04/01/24 Feeling nervous, anxious, or on edge: 0 = Not at all Not being able to stop or control worryin = Not at all Worrying too much about different things: 0 = Not at all Trouble relaxin = Not at all Being so restless that it is hard to sit still: 0 = Not at all Becoming easily annoyed or irritable: 0 = Not at all Feeling afraid as if something awful might happen: 0 = Not at all Total TIFFANIE-7 score (0-4 normal; 5-9 mild; 10-14 moderate; 15-21 severe): 0 Source: Developed by Drs. Carlos Enrique Smith, Stella Bautista, Agus Willoughby and colleagues, with an educational frederick from [employer]. Review of Systems Const Denies chills, Denies fatigue, Denies fever(s), Denies headache(s) and Denies weakness ENT Denies dizziness and Denies headache(s) Card Denies dyspnea Resp Denies cough, Denies dyspnea, Denies wheezing and Denies other (shortness of breath) Musc Denies numbness and Denies tingling Neuro Denies dizziness, Denies headache(s), Denies numbness, Denies tingling and Denies weakness Psych Denies anxiety and Denies depression Endo Denies fatigue Aller/Immun Denies wheezing Physical exam (Primary Care) Vital Signs: Last Vital Signs Temp 98.2 F 10/23/24 08:40 Pulse 78 10/23/24 08:40 Resp 14 10/23/24 08:40 BP 130/70 10/23/24 08:40 Pulse Ox 96 10/23/24 08:40 Oxygen Delivery Method Room Air 10/23/24 08:40 BMI result Body Mass Index 26.9 Tobacco/Smoking Status: Tobacco use Status Tobacco use date assessed 04/01/24 10/23/24 08:34 Patient Tobacco Use Status Never used Tobacco 10/23/24 08:34 e-Cigarette/Vaping Use Never Used 10/23/24 08:34 PHQ-9: PHQ-9 Score PHQ-9: Total score 2 10/23/24 09:21 Thrive Assessment: Date of Thrive Assessment Date Thrive assessed 04/01/24 10/23/24 08:34 Currently or been in a relationship where the following occur: No concerns reported Const General: well developed; No acute distress Nutritional Appearance: well nourished Orientation/consciousness: patient oriented x3 HENMT Head: Yes normocephalic and Yes atraumatic Eyes General: appearance normal, both eyes and all related structures Pupils: Equal, round and reactive pupils present EOM: EOMs intact bilaterally Resp Effort & Inspection: normal respiratory effort Auscultation: clear to auscultation bilaterally Cardio Rate: regular rate Rhythm: regular rhythm Heart sounds: S1 normal heart sound present, S2 normal heart sound present, no gallops, no murmurs and no rubs Neuro General: patient oriented x3 and gait normal Cranial nerves: Yes Equal, round and reactive pupils present Psych Affect: normal affect Coding Level of Care Code Est Pt Level 3 (26448) Diagnoses Pre-diabetes R73.03 Assessment & Plan Assessment & Plan (1) Pre-diabetes: Code(s): R73.03 - Prediabetes Category: Medical Medications: Refilled clobetasol 0.05% 1 appl topical DAILY 30 days PRN 30 grams 3RF Eczema/itch pravastatin 40 mg PO DAILY 90 days 90 tabs 3RF sildenafil administer 30 minutes to 4 hours before activity 100 mg PO DAILY 30 days PRN 30 tabs 4RF sexual activity omeprazole 20 mg PO DAILY 90 days 90 caps 3RF
[2024-10-23 08:40] VITALS: BP 130/70; PULSE 78; RESP 14; TEMP 36.8; O2SAT 96; BMI 26.9
--- OUTSIDE RECORDS SUMMARY | 2024-10-23 08:59 | XMS_ITS | Patient Health Record ---
Author Organization [facility] Address [address] [place] [address] Care Team Providers Care Bleaching Supervisor Name Role Phone Alton Vegas Primary Care Provider Unavailab Hunter Key Jr Unavailable Reason For Referral No Information Medications Medication SIG (Take, Route, Frequency, Duration) Notes Start Date End Date Status Glucosamine 2000mg A ctive Viagra 100mg Active Colyte with Flavor Packs 240 GM As directed Orally Over the specified time. for 1 day(s) Active Pravastatin Sodium 40mg Active Omeprazole 20mg Acti ve Eye Vitamins Active Chondroitin Sulfate Active Problems Problem Type SNOMED Code ICD Code Onset Dates Problem Status W/U Status Risk Notes Problem [id number] Colon cancer screening (Z12.11) Active confirmed Problem [id number] Nausea (R11.0) Active confirmed Plan Of Treatment Future Test Test Name Order Date COLONOSCOPY 07/03/2012 COLONOSCOPY 04/24/2018 Insurance Providers Payer Name Payer Address Payer Phone Subscriber Number Group Number Insured Name Patient Relationship to Insured Coverage Start Date Coverage End Date [facility] [address] [place], [place] [id number] [phone] [id number] [place]ITI PARK Self - patient is the insured Medical (General) History Medical History History ICD Code Tubular adenoma and hyperplastic polyps Reflux Elevated cholesterol Enlarged prostate Migraines Denies MA,DM,CVA,Lung disease,renal dise ase sinus allergies Surgical History Surgery Date(Month/Year) Knee surgery Tonsillectomy Removal of fatty tumor from the chest wa ll. dnetal surgery
--- OUTSIDE RECORDS SUMMARY | 2024-10-23 08:59 | XMS_ITS | Continuity of Care Document ---
Author Organization [facility] Address [address] [place] [address] Phone Care Team Providers Care Vessel Crew Member Name Role Phone Unavailable Unavailable Unavailable Allergies, [...] Providers Copied on Encounter [facility], [address], [place], [id number], tel:[phone] [place] No Information 3 No Information [facility], [address], [place], [id number], tel:[phone] [place] Part Detach-singl DefecVitreous DegenerationLat bre DegenerationSen ile Nuclear Cataract 3 No Information Family History Family Member Type Diagnosis Age At Onset Father Problem (finding) HBP Payers Payer name Insurance type Covered green party ID Authoriza tion(s) Commercial Secondary CI [id number] Social History Type Description Quantity Date Captured [...] levels. As the patient is traveling from [place], he prefers to head home for evaluation and treatment, which is a resonable decision.PRN @ [facility] Related to Part Detach-singl Defec Assessments Type Assessment Date No Information Patient Care Teams Name Effective Dates (start - stop) Status Members No Information
--- OUTSIDE RECORDS SUMMARY | 2024-10-23 08:59 | XMS_ITS | Continuity of Care Document ---
Author Organization [facility] Address [address] [address] [place] [address] Phone Care Team Providers Care Swift Tender Name Role Phone Yenni Saldivar MD Unavailable Unavailable Allergies, Adverse Reactions, Alerts Substance Reaction Status Criticality No Known Allergies Active No Inform ation Medications Medication Instructions Dosage Effective Dates (start - stop) Status Comments LIPITOR (unknown strength) Not Available - Active Procedures Procedure Date Comp eye examination, estab patient Computer Ophth Img Optic Nerve Visual field exam(s), extended No Charge Refraction Comp eye examination, estab patient Computer Ophth Img Optic Nerve Oct-05-18 Visual field exam(s), extended Oct Corneal Pachymetry No Charge Refraction Computerized Ophthalmic Diagnostic Imagi ng Oct- Visual field exam(s), extended Prof Comp Oct- Computerized Ophthalmic Diagnostic Imagi ng Oct- Visual field exam(s), extended Tech Comp Oct- Corneal Pachymetry Comp eye examination, estab patient Determination of refractive state Comp eye examination, estab patient Determination of refractive state Lasering of secondary cataract Comp eye examination, estab patient No Charge Refraction Comp eye examination, estab patient No Charge Refraction Eval/Manage Level I Determination of refractive state Office/outpatient visit,est, mod 2017 No Charge Refraction Postop followup visit Postop followup visit Postop followup visit Remove cataract, insert lens prosth Comp eye examination, estab patient Ophthalmic biometry Pre Op Kit NC Lab Test Comp eye examination, estab patient No Charge Refraction Office/outpatient visit,est, low 2016 Office/outpatient visit,est, low 2016 Comp eye examination, estab patient No Charge Refraction Lasering of secondary cataract 16 Comp eye examination, estab patient Comp eye examination, estab patient Determination of refractive state Office/outpatient visit,est, low 2013 Office/outpatient visit,est, low 2013 Press On Lens Fresnell Prism Per Lens Oc Intermed eye exam, estab patient 2013 Special eye evaluation,sensorimotor No Charge Refraction Comp eye examination, estab patient Postop followup visit Determination of refractive state Postop followup visit Postop followup visit Postop followup visit Postop followup visit Remove cataract, insert lens prosth Ophthalmic biometry NC Lab Test Comp eye examination, estab patient Postop followup visit Postop followup visit Postop followup visit Postop followup visit Postop followup visit Postop followup visit Repair Cmplx Retinal Detachment W Vitrec t And MP Postop followup visit Postop followup visit Vitrectomy; Remove Preretinal Membrane F Intermed eye exam, estab patient 2013 Computer Ophth Dx Imaging Post Segment F Postop followup visit Postop followup visit Postop followup visit Comp eye examination, estab patient Repair detached retina, vitrectomy Comprehensive eye exam, new patient Determination of refractive state Advance Directives Directive Yes / No Effective Date File Name No Information Encounters Encounter Description Practice Location Reason(s) For Visit Diagnoses Date Provider Providers Copied on Encounter [facility], [address] [address], [place], [place], [address], tel:[phone] [facility] Patient is here for a complete ocular exam. (chief complaint) Open angle with borderline findings, low risk, bilateral H40.013;Benig n neoplasm of left choroid D31.32Dry eye syndrome of bilateral lacrimal glands H04.123 4 Yariel Hyman. [address], [place], [place], [address], [place]. tel:[phone] Referring Provider: Yenni Gonzalez, [address], [place], [address] . tel:[phone] [facility], [address] [address], [place], [place], [address], tel:[phone] [facility] The patient is here for a visual field exam. 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 [address], [place], [place], [address], [place]. tel:[phone] Referring Provider: Yenni Gonzalez, [address], [place], [address] . tel:[phone] [facility], [address] [address], [place], [place], [address], tel:[phone] [facility] No Information Oct-2 2 Yariel Hyman. [address], [place], [place], [address], . tel:[phone] Referring Provider: Yenni Gonzalez, [facility] [address], [place], [address] . tel:[phone] [facility], [address] [address], [place], [place], [address], tel:[phone] [facility] Open angle with borderline findings, low risk, bilateral Oct-2 2 Yariel Hyman. [facility] [address], [place], [place], [address], . [phone] Referring Provider: Yenni Gonzalez, [facility] [address], [place], [address] . tel:[phone] [facility], [address] [address], [place], [place], [address], tel:[phone] [facility] The patient is here for a complete exam. (chief complaint) Open angle with borderline findings, low risk, bilateral H40.013Pseudo phakia Z96.1 Sep-0 2 Yariel Hyman. [facility] [address], [place], [place], [address], [place]. tel:[phone] Referring Provider: Yenni Gonzalez, [facility] [address], [place], [address] . tel:[phone] [facility], [address] [address], [place], [place], [address], [place] [phone] [facility] Patient is here to get an updated glasses prescription. (chief complaint) Benign neoplasm of left choroid D31.32Presbyo guillermo H52.4 1 Yariel Hyman. [address], [address], [place], [place], [address], [place]. tel:[phone] [facility], [address] [address], [place], [place], [address], [place] [phone] [facility] Other secondary cataract, right eye 9 Yariel Hyman. [address], [address], [place], [place], [address], [place]. [phone] [facility], [address] [address], [place], [place], [address], [place] tel:[phone] [facility] Patient is here for an annual ocular health evaluation. (chief complaint) Benign neoplasm of left choroid D31.32S/p retinal detachment repair Z98.890PCO (posterior capsule opacification ), left eye H26.492 9 Yariel Hyman. [address], [address], [place], [place], [address], [place]. [phone] [facility], [address] [address], [place], [place], [address], [place] [phone] [facility] Patient is here for a 6 month pseudophakic evaluation. (chief complaint) Pseudophakia Z96.1S/p retinal detachment repair Z98.890Benign neoplasm of left choroid D31.32 8 Yariel Hyman. [address], [address], [place], [place], [address], [place]. tel:[phone] Referring Provider: Yenni Gonzalez, [address], [place], [address] . tel:[phone] [facility], [address] [address], [place], [place], [address], [phone] [facility] Pseudophakia Z96.1; 8 Yariel Hyman. [address], [place], [place], [address], [place]. tel:[phone] Office/outpa tient visit,est, [facility], [address] [address], [place], [place], [address], [place] tel:[phone] Adelaida Georges Patient here for strabismus consult (chief complaint) Diplopia H53.2; 8 Andres Michele. [address], [address], [place], [place], [address], [place]. tel:[phone] [facility], [address] [address], [place], [place], [address], [place] tel:[phone] [facility] The patient is here for a 1 month post-op (chief complaint) Pseudophakia Z96.1;Diplopi a H53.2 8 Yariel Hyman. [address], [place], [place], [address], [place]. tel:[phone] Referring Provider: Yenni Gonzalez, [address], [place], [address] . tel:[phone] [facility], [address] [address], [place], [place], [address], tel:[phone] [facility] The patient is here for a 1 week post-op (chief complaint) Pseudophakia Z96.1 8 No Information [facility], [address] [address], [place], [place], [address], [place] tel:[phone] [facility] The patient is here for a 1 day post-op right eye. (chief complaint) Pseudophakia Z96.1 8 No Information Referring Provider: Yenni Gonzalez, [address], [facility] [place], [address] . tel:[phone] [facility], [address] [address], [place], [place], [address], [place] tel: [phone] [facility] No Information 8 Yariel Hyman. [address], [address], [place], [place], [address], [place]. tel:[phone] Referring Provider: Yenni Gonzalez, [facility] [address], [place], [address] . tel:[phone] [facility], [address] [address], [place], [place], [address], [place] tel: [phone] [facility] Patient presents for cataract consult follow up (chief complaint) Age-related nuclear cataract, right eye H25.11Pseudop hakia Z96.1S/p retinal detachment repair Z98.890Blepha ritis of right upper eyelid H01.001 8 Yariel Hyman. [address], [address], [place], [place], [address], [place]. tel:[phone] Referring Provider: Yenni Gonzalez, [facility] [address], [place], [address] . tel:[phone] [facility], [address] [address], [place], [place], [address], [place] tel: [phone] [facility] Age-related nuclear cataract, right eye 8 Yariel Hyman. [address], [address], [place], [place], [address], [place]. tel:[phone] Referring Provider: Yenni Gonzalez, [address], [place], [address] . tel:[phone] [facility], [address] [address], [place], [place], [address], [place] tel:[phone] [facility] Yearly Ocular health exam. (chief complaint) Age-related nuclear cataract, right eye H25.11;Pseudo phakia Z96.1;S/p retinal detachment repair Z98.890 Apr- 7 Yariel Hyman. [address], [address], [place], [place], [address], . tel:[phone] Referring Provider: Yenni Gonzalez, [address], [place], [address] . tel:[phone] Office/outpa tient visit,[facility], [facility], [address] [address], [place], [place], [address], [phone] [facility] The patient is here for a 1 week follow up for keratiti (chief complaint) Entropion of lt upper eyelid H02.004 7 No Information Office/outpa tient visit,[facility], [facility], [address] [address], [place], [place], [address], [place] [phone] [facility] The patient is here for an urgent visit for irritation (chief complaint) Superficial keratitis of left eye H16.102 7 No Information [facility], [address] [address], [place], [place], [address], [place] [phone] [facility] The patient is here for a cataract check (chief complaint) Age-related nuclear cataract, right eye H25.11Pseudop hakia Z96.1S/p retinal detachment repair Z98.89 Mar- 6 Yariel Hyman. [address], [place], [place], [address], [place]. tel:[phone] Referring Provider: Yenni Gonzalez, [address], [place], [address] . tel:[phone] [facility], [address] [address], [place], [place], [address], tel:[phone] [facility] No Information Sep- 6 Yariel Hyman. [facility] [address], [place], [place], [address], . tel:[phone] Referring Provider: Yenni Gonzalez, [facility] [address], [place], [address] . tel:[phone] [facility], [address] [address], [place], [place], [address], [phone] [facility] Patient is here for a cataract evaluation. (chief complaint) Age-related nuclear cataract, right eye H25.11Pseudop hakia Z96.1Posterio r capsule opacification , left eye H26.492 Sep- 6 Yariel Hyman. [facility] [address], [place], [place], [address], . tel:[phone] Referring Provider: Yenni Gonzalez, [facility] [address], [place], [address] . tel:[phone] [facility], [address] [address], [place], [place], [address], [phone] [facility] Patient is here for a yearly retinal exam. (chief complaint) Benign neoplasm of choroid 224.6S/P TPPV/MP/endol aser/gas V45.69Disorde r of refraction and accommodation ,unspecified 367.9Nuclear sclerosis senile cataract 366.16Posteri or Vitreous Detachment 379.21Age-rel ated nuclear cataract, right eyeUnspecifie d disorder of refractionVit reous degeneration, right eye Sep-0 5 Johnathan Greer. [facility] [address], [address], . [phone] Referring Provider: Percy Edmond[place], [facility] [address], [address] . tel:[phone] Office/outpa tient visit,est, [facility], [address] [address], [place], [place], [address], [place] tel:[phone] Adelaida Georges Patient is here for a diplopia follow up. (chief complaint) Diplopia 368.2 3-201 4 Andres Michele. [address], [address], [place], [place], [address], [place]. tel:[phone] Referring Provider: Ryne Campos, [address] [place] [address] [address], [place], [address] . tel:[phone] Office/outpa tient visit,est, [facility], [address] [address], [place], [place], [address], [place] tel:[phone] [facility] Patient is here for a diplopia follow up. (chief complaint) Diplopia 368.2S/P TPPV/MP/endol aser/gas V45.69 8201 4 Andres Michele. [address], [address], [place], [place], [address], [place]. tel:[phone] Referring Provider: Ryne Campos [address] [place] [address] [address], [place], [address] . tel:[phone] [facility], [address] [address], [place], [place], [address], [place] tel:[phone] [facility] Double vision consult today. (chief complaint) Diplopia 368.2 5201 4 Andres Michele. [address], [address], [place], [place], [address], [place]. tel:[phone] Referring Provider: Yenni Gonzalez, [facility] [address], [place], [address] . tel:[phone] [facility], [address] [address], [place], [place], [address], tel:[phone] [facility] The patient is here for a follow up exam s/p -PPV, Int (chief complaint) S/P TPPV/MP/endol aser/gas V45.69Posteri or Vitreous Detachment 379.21Nuclear sclerosis senile cataract 366.16Pseudop hakic V43.1 4 Johnathan Greer. [address], [place], [place], [address], [place]. tel:[phone] Referring Provider: Percy Edmondson, [address], [place], [address] . tel:[phone] [facility], [address] [address], [place], [place], [address], [place] tel:[phone] [facility] Patient is here for a 1 month post-op s/p cataract surg (chief complaint)Pat ient states his vision has been doing well in his ri (chief complaint) S/P cataract removal with IOL V43.1S/P TPPV/MP/endol aser/gas V45.69 4 Yariel Hyman. [address], [address], [place], [place], [address], [place]. [phone] Referring Provider: Yenni Gonzalez, [address], [place], [address] . tel:[phone] [facility], [address] [address], [place], [place], [address], [place] tel:[phone] [facility] The patient is here for a 2 week cataract post-op (chief complaint) S/P cataract removal with IOL V43.1S/P TPPV/MP/endol aser/gas V45.69 4 Yariel Hyman. [address], [place], [place], [address], [place]. tel:[phone] Referring Provider: Yenni Gonzalez, [address], [place], [address] . tel:[phone] [facility], [address] [address], [place], [place], [address], [place] tel:[phone] [facility] S/P cataract removal with IOL V43.1S/P TPPV/MP/endol aser/gas V45.69 4 Yariel Hyman. [address], [place], [place], [address], [place]. tel:[phone] [facility], [address] [address], [place], [place], [address], [place] tel:[phone] [facility] Patient is here for a 1 week cataract post-op exam. (chief complaint) S/P cataract removal with IOL V43.1S/P TPPV/MP/endol aser/gas V45.69 4 Jaquan Anderson. [address], [address], [place], [place], [address]. tel:[phone] Referring Provider: Yenni Gonzalez, [address], [place], [address] . tel:[phone] [facility], [address] [address], [place], [place], [address], [place] tel:[phone] [facility] Patient here for a 1 day post-op s/p cataract surgery. (chief complaint) Lens replaced by prosthesisPos t-Proc St Eye/Adn Nec 0 4 Jaquan Anderson. [address], [address], [place], [place], [address]. tel:[phone] Referring Provider: Yenni Gonzalez, [address], [place], [address] . tel:[phone] [facility], [address] [address], [place], [place], [address], [place] tel:[phone] [facility] No Information 4 Yariel Hyman. [address], [place], [place], [address], [place]. tel:[phone] Referring Provider: Yenni Gonzalez, [address], [place], [address] . tel:[phone] [facility], [address] [address], [place], [place], [address], [place] tel:[phone] [facility] No Information 4 Yariel Hyman. [address], [place], [place], [address], [place]. [phone] Referring Provider: Yenni Gonzalez, [address], [place], [address] . tel:[phone] [facility], [address] [address], [place], [place], [address], [place] tel:[phone] [facility] Patient is here for a cataract consultation exam. (chief complaint) Nuclear sclerosis senile cataractPost- Proc St Eye/Adn Nec 4 Yariel Hyman. [address], [place], [place], [address], [place]. [phone] Referring Provider: Percy Edmondson, [address], [place], [address] . tel:[phone] [facility], [address] [address], [place], [place], [address], [place] [phone] [facility] Patient here for [address] repair., left eye (chief complaint) Post-Proc St Eye/Adn NecVitreous DegenerationN uclear sclerosis senile cataract 4 Johnathan Greer. [address], [place], [place], [address], [place]. tel:[phone] Referring Provider: Percy Edmondson, [address], [facility], [address] . tel:[phone] [facility], [address] [address], [place], [place], [address], [place] tel:[phone] [facility] Patient presents for a 2month follow up due to S/P TPPV (chief complaint) Post-Proc St Eye/Adn NecNuclear sclerosis senile cataract Apr-2 4 Johnathan Greer. [address], [place], [place], [address], [place]. tel:[phone] Referring Provider: Percy Edmondson, [address], [facility], [address] . tel:[phone] [facility], [address] [address], [place], [place], [address], [place] tel:[phone] [facility] Patient is here for 2 week follow up for Recurrent Reti (chief complaint) Post-Proc St Eye/Adn Nec Apr-0 4 Johnathan Greer. [address], [place], [place], [address], [place]. [phone] Referring Provider: Percy Edmondson, [address], [facility], [address] . tel:[phone] [facility], [address] [address], [place], [place], [address], [place] tel:[phone] [facility] Patient is here for 2 week PPV/MP post-op in left eye. (chief complaint) Post-Proc St Eye/Adn NecPosterior subcapsular polar senile cataract Sep-2 4 Johnathan Greer. [address], [place], [place], [address], [place]. tel:[phone] [facility], [address] [address], [place], [place], [address], [place] tel:[phone] [facility] The patient is here for a 1 week post-op for Retinal de (chief complaint) Post-Proc St Eye/Adn Nec Sep- 4 4 No Information Referring Provider: Percy Edmondson, [address], [facility], [address] . tel:[phone] [facility], [address] [address], [place], [place], [address], tel:[phone] [facility] The patient is here for a 1 day post-op s/p PPV for RD (chief complaint) Post-Proc St Eye/Adn Nec Sep-0 4 Johnathan Greer. [address], [place], [place], [address], [place]. [phone] Referring Provider: Percy Edmondson, [address], [facility], [address] . tel:[phone] [facility], [address] [address], [place], [place], [address], [place] [phone] [facility] No Information 4 Johnathan Greer. [address], [place], [place], [address], [place]. [phone] Referring Provider: Rome Sanchez, [address], [place], [address] . tel:[phone] [facility], [address] [address], [place], [place], [address], [place] tel:[phone] [facility] Surgery follow-up on TPPV, MP, Triam Assist Left eye do (chief complaint) Post-Proc St Eye/Adn NecSenile cataract, unspecifiedRh egmatogenous retinal detachment,re cent, with retinal defect 4 Amy Peter. [address], [place], [place], [address], [place]. tel:[phone] Referring Provider: Rome Sanchez, [address], [facility], [address] . tel:[phone] [facility], [address] [address], [place], [place], [address], [place] [phone] Adelaida Georges Patient here for 1 day post operative visit on TPPV, MP (chief complaint) Post-Proc St Eye/Adn NecSenile cataract, unspecified Aug- 4 Amy Peter. [address], [place], [place], [address], [place]. tel:[phone] Referring Provider: Rome Sanchez, [address], [facility], [address] . tel:[phone] [facility], [address] [address], [place], [place], [address], [place] [phone] Adela[facility] Georges No Information 4 Amy Peter. [address], [place], [place], [address], [place]. tel:[phone] Referring Provider: Rome Sanchez, [address], [facility], [address] . tel:[phone] [facility], [address] [address], [place], [place], [address], [place] [phone] Adelaida Georges The patient is for 1 month follow up with OCT (chief complaint) Post-Proc St Eye/Adn NecMacular puckering of retinaSenile cataract, unspecified Aug-0 4 Amykimberly Peter. [address], [place], [place], [address], [place]. tel:[phone] Referring Provider: Rome Sanchez, [address], [facility], [address] . tel:[phone] [facility], [address] [address], [place], [place], [address], [place] tel:[phone] Adelaida Georges Patient here for 2 week post operative visit on retinal (chief complaint) Post-Proc St Eye/Adn NecMacular puckering of retinaSenile cataract, unspecified 4 Amy Rome. [address], [place], [place], [address], [place]. tel:[phone] Referring Provider: Rome Sanchez, [address], [place], [address] . tel:[phone] [facility], [address] [address], [place], [place], [id number], [place] tel:[phone] Adelaida Georges The patient presents for a 1 week follow-up, S/P Retina (chief complaint) Post-Proc St Eye/Adn NecMyopiaSeni le cataract, unspecified 4 Amy Rome. [address], [place], [place], [address], [place]. tel:[phone] Referring Provider: Percy Edmondson, [address], [place], [address] . tel:[phone] [facility], [address] [address], [place], [place], [address], [place] tel:[phone] [facility] The patient is here for a 1 day post-op for a retinal d (chief complaint) Post-Proc St Eye/Adn Nec Jun-3 3 Johnathan Greer. [address], [place], [place], [id number], [place]. tel:[phone] Referring Provider: Percy Edmondson, [address], [place], [address] . tel:[phone] [facility], [address] [address], [place], [place], [address], tel:[phone] [facility] Retinal detachment, unspecified 3 Yariel Hyman. [address], [address], [place], [address], . tel:[phone] Referring Provider: Yenni Gonzalez, [facility] [address], [address] . tel:[phone] [facility], [address] [address], [place], [place], [address], [place] [phone] [facility] No Information 3 Amy Peter. [address], [place], [place], [id number], [place]. tel:[phone] [facility], [address] [address], [place], [place], [id number], tel:[phone] [facility] Patient is here for a complete ocular health exam. (chief complaint) SENILE NUCLEAR CATARACTTEAR FILM INSUFFIC NOSMYOPIABENI GN NEOPLASM CHOROIDBENIGN NEOPLASM CHOROID 2 Yariel Hyman. [facility] [address], [address], [place], [address], [place]. tel:[phone] Referring Provider: Yenni Gonzalez, [facility] [address], [address] . tel:[phone] Family History Family Member Type Diagnosis Age At Onset Father Problem (finding) Hypertension Sister Problem (finding) Cancer Father Problem (finding) Heart Disease Sister Problem (finding) cataract Payers Payer name Insurance type Covered democrat ID Aiyana garduno(s) [facility] Medicare Advantage PPO CI [id number] Social History Type Description Quantity Date Captured Comments Alcohol Use Details Unknown Caffeine Use Details Unknown Tobacco Use Status Ex-pipe smoker Smoking Status Never smoker Non-Smoking Tobacco Use Details : No Details Available : No Details Available Sex Male Chief Complaint And Reason For Visit From encounter dated '06/04/2024 14:40'. Patient is here for a complete ocular exam. (chief complaint) Reason For Referral Reason For Referral No Information Plan Of Treatment Date Type Action Status Patient Education Cataracts: Care Instruc tions completed History Of Present Illness Encounter Date Complaint History Of Prese nt Illness The patient is here for a visual field exam. The patient is here for a visual field exam. The patient states that his vision has been the same since last visit and has no trouble seeing things. He does get dry eye and uses AT twice a day for relief. He has no major concerns about his vision. The patient is here for a complete exam. The patient is here for a complete exam. The patient states he thinks he may need a new prescription. He also reports dry eyes and he has been using OTC eye drops as needed. The patient would like to get new glasses with his new prescription if it has changed at all. The patient notices some reduction of vision in his left eye. The patient has no further complaints at this time. The patient states he uses prism in his glasses and he needs it for his prescription. Patient is here to g et an updated glasses prescription. Patient is here to get an updated glasses prescription. He has noticed a very slight decrease in his distance vision in both eyes. His glasses are about 3 years old and thinks he may just need to update his glasses. He does use artificial tears 2-3 times a day in both eyes, but denies any pain in either eye. Patient is here for an annual ocular health evaluation. Patient is here for an annual ocular health evaluation for both eyes. Patient does get some dryness in his left eye, he does use Blink drops as needed. Patient has noticed a decrease in his distance vision in both eyes over the past year. Patient is here for a 6 month pseudophakic evaluation. Patient is here for a 6 month pseudophakic evaluation for both eyes. Patient has not noticed any change in his vision in either eye since the cataract surgery done in his right eye eariler this year. Patient eyes will get dry, he will occasionally use artificial tears and do a warm compresses. {eyeChiefComplai nt_.cc3_comments} The patient is h ere for a glasses check. His left eye in the new glasses is fine. With the right eye, distance is noticeably worse than old glasses. He does not like that he doesn't have mid-range in his glasses- this was better with his trifocal prior to surgery. Patient here for strabismus cons ult Patient here for strabismus consult. Patient is needing a new glasses prescription post cataract surgery. He is doing well with current prism, no double vision. He's been wearing a pair of computer/reading glasses that he's can see well for distance vision with. {eyeChiefComplai nt_.cc3_comments} {eyeChiefComplai nt_.cc3_comments} The patient is here for a 1 month post-op The patient is here for a 1 month post-op s/p cataract removal in the right eye. He notes that the vision at near is excellent, and if needed will use magnifying glass. {eyeChiefComplai nt_.cc3_comments} The patient is here for a 1 week post-op The patient is here for a 1 week post-op following cataract surgery in the right eye. Patient reports improved vision since surgery and he states compliance with post op drops. Patient reports eyes seem kind of cloudy after drops usage in the mornings. The cloudiness lasts about a half hour and fades away on its own. This does not seem to occur with the dosages of drops later in the day. Left eye has irr itation for the last few days, possibly due to dryness. {eyeChiefComplai nt_.cc3_comments} Patient presents for cataract consult follow up Patient presents for cataract consult follow up in the right eye. States vision seems to be stable since last exam. Reports the right eye has difficulty in low light. Reports needs to have a bright light for low contrast lettering . Denies pain. {eyeChiefComplai nt_.cc3_comments} Yearly Ocular health exam. Yearl y Ocular health exam. Has difficulty seeing in low lighting. At times he can't see the numbers on the dash board. A little glare trouble with sunlight or at night. {eyeChiefComplai nt_.cc3_comments} The patient is here for a 1 week follow up for keratiti The patient is here for a 1 week follow up for keratitis in the left eye. he states that his left eye has been feeling better since last visit. The ointment is helping the irritation. However, he still has a FBS. He has been using ATs 2x/day. Functional Status Date Functional Assessmen t No Information Instructions Date Instruction Additional Infor jere - - Counseled patien t on exam findings- Continue artificial tears 4x/day into both eyes (ie. Retaine, Soothe XP or Systane Complete)- Continue hot compress to both eyes for 5 minutes daily with rice bag- Continue lubricating gel drop (i.e. 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 Re lated to Glaucoma Oct- - OCT (Optic Disc/RNFL) today. 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 New glasses prescription given today. Related to Presbyopia H52.4 - Return in 1-2 week s with Justin Partida, COMT Related to Other secondary cataract, right eye - Offered YAG left e esa. Counseled patient on risks, benefits, alternatives of surgery. Patient agrees and wishes to proceed with surgery. 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 R elated to S/p retinal detachment repair Z98.890 - - New glasses Rx given. 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 Patient instructed to call immediately if experiences decreasing vision, increasing pain or other concerns. Return to clinic in 3-4 weeks.Patient has prism in glasses and will need to be recheck to confirm accurate power at next visit. 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 Use post-op medications as prescribed. Patient instructed to call immediately if experiences decreasing vision, increasing pain or other concerns. Return to clinic in one week. 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 Retaine or Soothe XP)- Start hot compress to both eyes for 5 minutes daily with rice bag- Start lid scrubs with baby shampoo once a dayHow to make a hot compress:1. Take a clean cotton sock that you will not want to wear anymore. 2. Fill the foot portion of the sock with uncooked white rice. 3. Tie or sew off the end.4. Place rice sock into the microwave, in intervals of 10-15 seconds, until the bag is nice and hot.5. Check the temperature of the rice sock on the back of your hand to make sure that it will not burn you.6. Place hot rice sock over both eyes for 5 minutes.7. Repeat as needed. 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 Saldivar Related to Age-related nuclear cataract, right eye H25.11 - - Monitor Related to S/p r etinal detachment repair Z98.890 - - Monitor IOL Related to Pseud ophakia Z96.1 - - Counseled patiemily t on exam findings- Offered cataract extraction (phaco) with intraocular lens Right eye. B/A/R's reviewed. Patient understands and wishes to proceed with surgery. Order: Ascan/ OCB. - Plan topical, -2.00 Related to Age-related nuclear cataract, right eye H25.11 - Removed lashes in contact with globe today. Some residual areas of tracking sup & inf cornea.Increase artificial tear use to 4 times daily in left eye. Discontinue must of Maxitrol ointment.Call with increased irritation or new FBS OS. 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 Continue artificial tears 2-4 times daily. RTC x 1 week for cornea re-eval. Related to Superficial keratitis of left eye H16.102 Cataracts: Care Instructions edu [facility] - - Monitor annually with dilate d exams Related to S/p retinal detachment repair Z98.89; - - Monitor Related to Pseud ophakia Z96.1; - - Counseled patien t on exam findings- No treatment currently recommended due to [place] level. - Patient will monitor vision changes and contact us with any decrease in vision, will re-evaluate cataract on return visit. 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 R/B/A/C discussed. Patient agrees and wishes to proceed. - Schedule at [facility] office. 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 Patient will monitor vision changes and contact us with any decrease in vision, will re-evaluate cataract on return visit. Related to Age-related nuclear cataract, right eye H25.11; - Patient was counse led on cataract diagnosis and the patient understands. No treatment is required at this time. Will continue to observe condition and symptoms. 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 No treatment is required at present time. Will continue to monitor condition. Related to S/P TPPV/MP/endolaser/gas V45.69; Other states following surgery of eye and adnexa V45.69 - The patient was co unseled in detail on the diagnosis and understands. No treatment is required at this time. Reassured patient of current condition and treatment. Will continue to observe condition and or symptoms. Related to Benign neoplasm of choroid 224.6; Benign neoplasm of unspecified choroid D31.30 - The patient was co unseled in detail on the diagnosis and understands. No treatment is required at present time. Will continue to monitor condition. Related to Posterior Vitreous Detachment 379.21; Vitreous degeneration, right eye H43.811 - New glasses Rx giv en today with total of 5BI and 3BD OS.-Only the right lens needs to be replaced to refect addition BI prism. Related to Diplopia 368.2 - Explained that thi s is the cause of patient's complaint of distortion. Related to S/P TPPV/MP/endolaser/gas V45.69 - Recommend increasi ng horizontal prism by [address] fres[address] today on left lens. Related to Diplopia 368.2 - Counseled patient on diagnosis. Will give new glasses prescription today with prism. Recommend patient get lined bifocal rather than progressive lenses. Explained we may have to change prism in the future. Related to Diplopia 368.2 - Will continue to o bserve condition and symptoms. Related to Pseudophakic V43.1 - Will continue to o bserve condition and symptoms. 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 Related to Posterior Vitreous Detachment 379.21 - The patient was co unseled in detail on the diagnosis and understands. No treatment is required at present time. Will continue to monitor condition. Related to S/P TPPV/MP/endolaser/gas V45.69 - Continue care with Dr. Mann as planned Related to S/P TPPV/MP/endolaser/gas V45.69 - - Continue use of artificial tears the same - Continue care with Dr. Mann at this time Related to S/P cataract removal with IOL V43.1 - - Keep Follow-up care w/ Dr. Lee Ann bran Related to S/P TPPV/MP/endolaser/gas V45.69 - - Counseled patien t regarding findings from today's exam.- Recommend patient to discontinue the Simbrinza.- Continue other post-op medications as previously prescribed. Related to S/P cataract removal with IOL V43.1 - Monitor Related to S/P TPPV/MP/endolaser/gas V45.69 - Continue use of me dications as prescribedContinue use of Simbrinza the same until seen again by Dr. Saldivar Related to S/P cataract removal with IOL V43.1 - Continue post-op m edications as prescribed. Patient instructed to call immediately if experiences decreasing vision, increasing pain or other concerns. Return to clinic in 1 week. Add Simbrinza TID OS per Dr. Cabrera Related to S/P cataract removal with IOL V43.1 - Observe Related to S/P TPPV/MP/endolaser/gas V45.69 S/P TPPV/MP/endolase r/gas V45.69 OS 10-03-[address] with mild PVR. - Continue care with Dr. Mann Related to S/P TPPV/MP/endolaser/gas V45.69 S/P cataract removal with IOL V43.1 OS -elevated IOP 1 day post-op- Dr. Saldivar examined patient today - Reviewed post-op instructions and hand out given. Use post-op medications as prescribed. Patient instructed to call immediately if experiences decreasing vision, increasing pain or other concerns. One drop Combigan/ Azopt every 5 minutes X3. Return to clinic in one week. Related to S/P cataract removal with IOL V43.1 S/P TPPV/MP/endolase r/gas V45.69 OS 10-03-[address] with mild PVR. - Continue care with Dr. MannPatient will need one month dilated visit with Dr. Mann after cataract surgery. Related to S/P TPPV/MP/endolaser/gas V45.69 Nuclear sclerosis se nile cataract 366.16 OS>OD - Offered cataract extraction (phaco) with intraocular lens Left eye. B/A/R's reviewed including risk of complication s/p vitrectomy and guarded prognosis given retinal detachment history. Patient understands and wishes to proceed with surgery. 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 Related to Posterior Vitreous Detachment 379.21 S/P TPPV/MP/endolase r/gas V45.69 OS 10-03-[address] with mild PVR. Retina attached. IOP stable. - The patient was counseled in detail on the diagnosis and understands. Continue Alphagan BID OD until bubble is gone. Related to S/P TPPV/MP/endolaser/gas V45.69 Nuclear sclerosis se nile cataract 366.16 OS>OD - Patient was counseled on cataract diagnosis and the patient understands. Will continue to observe condition and symptoms. 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 Retina attached. IOP stable. - Continue Alphagan until bubble is gone. Lifting is ok to do now. Still no traveling into high altitude. Will continue to observe. Related to S/P TPPV/MP/endolaser/gas V45.69 S/P TPPV/MP/endolase r/gas V45.69 OS 10-03-[address] with mild PVR. Retina attached. IOP stable. - Continue the Alphagan, Atropine, and Prednisolone Acetate three times a day as instructed. Patch, shield, and activity were discussed with the patient. Avoid being on back. Related to S/P TPPV/MP/endolaser/gas V45.69 Posterior subcapsula r senile cataract 366.14 OS - Will continue to observe condition and symptoms. Related to Posterior subcapsular senile cataract 366.14 S/P TPPV/Endodiathermy/DSRF/AFx/Intentional Retinoectomyj/endolaser/gas V45.69 Left eye done by Dr. Rome Reyes on 07-27-13 for Macula off retinal detachment. - observe Related to S/P TPPV/endolaser/gas V45.69 S/P TPPV/MP/endolase r/gas V45.69 OS 10-03-[address] with mild PVR. Retina attached. IOP stable. - Continue the Ofloxacin, Atropine, and Prednisolone Acetate three times a day as instructed. And Alphagan three times a day. Patch, shield, and activity were discussed with the patient. Discussed face down positioning and ok to keep head position up. No sleeping on back or traveling into high very elevation the 7,000ft. Will continue to observe. Related to S/P TPPV/MP/endolaser/gas V45.69 S/P TPPV/MP/endolase r/gas V45.[address] with mild PVR. Retina attached. IOP stable. - Continue the Ofloxacin, Atropine, Prednisolone Acetate and Alphagan three times a day as instructed. Patch, shield, and activity were discussed with the patient. Discussed face down positioning for 3 additional days and sleeping on the left side. Altitude precautions discussed. Related to S/P TPPV/MP/endolaser/gas V45.69 S/P TPPV/MP/endolase r/gas V45.[address] with mild PVR. Retina attached. IOP stable. - Start prednisolone, atropin, and ocuflox and alphagan all tid OS. Face down or lie on left x 1 week. 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 Discussed with patient r/b/c/a of observe vs TPPV, MP, DSRF, ENDO, GAS Left eye (out Pt mac 1hr). Explained face down positioning for 2 weeks and high elevation precautions after surgery. Visual prognosis guarded Left eye. Patient wishes to have surgery Left eye. Related to Rhegmatogenous retinal detachment, unspecified 361.00 Senile cataract, 366 .10 Left eye - mild - Counseled patient on examination findings and all diagnosis. No treatment is indicated at this time. Will continue to observe. Related to Senile cataract, unspecified 366.10 S/P TPPV/Endodiathermy/DSRF/AFx/Intentional Retinoectomyj/endolaser/gas V45.69 Left eye done by Dr. Rome Reyes on 07-27-13 for Macula off retinal detachment. - Counseled patient on examination findings and all diagnosis. See above plan Related to S/P TPPV/endolaser/gas V45.69 S/P TPPV, MP, TRIAM Assist V45.69 Left eye done on 09-25-[address] Rome Reyes for ERM. - See above plan Related to S/P TPPV V45.69 Senile cataract, 366 .10 Left eye - mild - Counseled patient on examination findings and all diagnosis. No treatment is indicated at this time. Will continue to observe. Related to Senile cataract, unspecified 366.10 S/P TPPV/Endodiathermy/DSRF/AFx/Intentional Retinoectomyj/endolaser/gas V45.69 Left eye done by Dr. Rome Reyes on 07-27-13 for Macula off retinal detachment. Retina attached. - Counseled patient on examination findings and all diagnosis. No treatment is indicated at this time. Will continue to observe. Related to S/P TPPV/endolaser/gas V45.69 S/P TPPV, MP, TRIAM Assist V45.69 Left eye done on 09-25-[address] Rome Reyes for ERM. retina attached - Continue the Ofloxacin, Atropine, and Prednisolone Acetate three times a day as instructed. Patch, shield, and activity were discussed with the patient. Related to S/P TPPV V45.69 Senile cataract, 366 .10 Left eye - mild - Will continue to monitor condition. Related to Senile cataract, unspecified 366.10 Epiretinal membrane (cellophane membrane) 362.56 Left eye -progressingOCT OS done 09/02/2013 shows ERM with moderate wrinkling, moderate retinal thicking in the fovea-worse and consider treatment - Counseled patient on examination findings and all diagnosis. Discussed R/B/A/C of observation vs. TPPV, MP, TRIAM Assist left eye. Patient understands risks and wishes to proceed with surgery. Related to Epiretinal membrane (cellophane membrane) 362.56 S/P TPPV/Endodiathermy/DSRF/AFx/Intentional Retinoectomyj/endolaser/gas V45.69 OS, 07-27-13 for Macula off retinal detachment. Retina attached and stable . IOP stable on drops. - Counseled patient on examination findings and all diagnosis. Use drops as directed below. Related to S/P TPPV/endolaser/gas V45.69 Senile cataract, 366 .10 Left eye - mild and will watch for now - Counseled patient on examination findings and all diagnosis. No treatment is indicated at this time. Will continue to observe. Related to Senile cataract, unspecified 366.10 Epiretinal membrane (cellophane membrane) 362.56 Left eye - will watch for now - Counseled patient on examination findings and all diagnosis. No treatment is indicated at this time. Will continue to observe. Related to Epiretinal membrane (cellophane membrane) 362.56 S/P TPPV/Endodiathermy/DSRF/AFx/Intentional Retinoectomyj/endolaser/gas V45.69 OS, 07-27-13 for Macula off retinal detachment. IOP stable, retina attached and IOP ok today - Counseled patient on examination findings and all diagnosis. Continue with drops as instructed below Left eye. Patient may slowly increase activity over the next 3 weeks. Related to S/P TPPV/endolaser/gas V45.69 Senile cataract, 366 .10 Left eye - mild and will watch for now - Counseled patient on examination findings and all diagnosis. No treatment is indicated at this time. Will continue to observe. Related to Senile cataract, unspecified 366.10 Myopic Astigmatism 3 67.1 OU - Counseled patient on examination findings and all diagnosis. No treatment is indicated at this time. Will continue to observe. Related to Myopic Astigmatism 367.1 S/P TPPV/Endodiathermy/DSRF/AFx/Intentional Retinoectomyj/endolaser/gas V45.69 OS, 07-27-13 for Macula off retinal detachment. IOP stable, retina attached and IOP low today - Counseled patient on examination findings and all diagnosis. Recommend drops as instructed below Left eye. D/c combigan and start Alphagan 3 times a day Left eye. Continue positioning for one more week, then patient may be upright just do not lay on back. Related to S/P TPPV/endolaser/gas V45.69 S/P TPPV/Endodiathermy/DSRF/AFx/Intentional Retinoectomyj/endolaser/gas V45.69 OS, 07-27-13 for Macula off retinal detachment. IOP stable, retina attached - Continue the Ofloxacin, Atropine, and Prednisolone Acetate three times a day as instructed. [facility] T[facility] due to [facility]. Patch, shield, and activity were discussed with the patient. Discussed face down positioning, will continue to observe. Related to S/P TPPV/endolaser/gas V45.69 Retinal detachment, unspecified 361.9 OS - macula off - Counseled patient regarding exam findingsDiscussed case with Dr. Reyes who recommended retinal detachment repair. R/B/A briefly discussed with Dr. Saldivar in clinic and will be discussed in depth with Dr. Reyes prior to surgery. Patient is agreeable to proceed with surgery.To [facility] for retinal detachment repair. Related to Retinal detachment, unspecified 361.9 Myopic Astigmatism 3 67.1 OU - New glasses Rx given today Related to Myopic Astigmatism 367.1 Dry eye syndrome 375 .15 OU - mild - -Discussed exam findings with the patient. 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 Counseled on options, surgery or spectacle change, explained surgery risks, benefits. Patient defers surgery and elects to change glasses first. 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
== END 2024-10-23 09:48 | disposition home or self-care (01) ==
LOC: HO.HMCFM 08:30
PROVIDERS: PCP Family Medicine; Visit Provider Family Medicine
DX: Z13.9 Encounter for screening, unspecified (principal)

== ENCOUNTER → 2024-10-23 08:30 | Outpatient (BNVA) | payer BC, SELFPAY | PROVIDERS: PCP Family Medicine; Visit Provider Family Medicine | DX: R73.03 Prediabetes (principal) | CPT/HCPCS: 83036; 96127 ==

== ENCOUNTER 2025-04-03 08:00 | Outpatient (REF) | payer BC, SELFPAY ==
[2025-04-03 11:26] LABS: Hematocrit 43.4 % (42.0-52.0); Hemoglobin 15.0 g/dl (14.0-18.0); Mean Corpuscular HGB Conc 34.6 g/dl (31.0-36.0); Mean Corpuscular Hemoglobin 32.6 pg (27.0-33.0); Mean Corpuscular Volume 94.3 fL (80.0-98.0); NRBC Abs Auto 0.000 X10*3/uL (0.0-0.012); NRBC Pct Auto 0.0 /100WBC (0.0-0.2); Platelet Count 227 X10*3/uL (160-400); Red Blood Count 4.60 X10*6/uL (4.60-5.80); White Blood Count 5.8 X10*3/uL (4.8-10.8)
[2025-04-03 11:38] LABS: Hemoglobin A1C 168.6993 umol/L; Total Hemoglobin (HGBA1C) 3976.4129 umol/L
[2025-04-03 11:56] LABS: Microalbum/Creatinine Ratio Ur 4.5 ug/mg cr (<30)
[2025-04-03 15:09] LABS: Alanine Aminotransferase 15 U/L (0-40); Albumin Level 4.3 g/dL (3.5-5.0); Alkaline Phosphatase 54 U/L (39-117); Anion Gap 10 (12-20); Aspartate Amino Transferase 27 U/L (5-37); Blood Urea Nitrogen 15 mg/dL (9-16); Calcium 8.9 mg/dL (8.4-10.2); Carbon Dioxide 29 mmol/L (22-29); Chloride 108 mmol/L (96-108); Cholesterol 186 mg/dL (<200); Estimated Glomerular Filt Rate > 60; HDL Cholesterol 51 mg/dL (>40); Potassium 4.6 mmol/L (3.3-5.1); Sodium 142 mmol/L (135-145); Total Protein 6.7 g/dL (6.5-8.0); Triglycerides 88 mg/dL (<150)
[2025-04-03 15:22] LABS: Folate 7.3 ng/mL (> or = 4.0); Vitamin B12 460 pg/mL (200-900)
== END 2025-04-03 08:01 | disposition home or self-care (01) ==
LOC: HO.WFDLDS 08:00
PROVIDERS: PCP Family Medicine; Visit Provider Nurse Practitioner Family
DX: Z00.00 Encounter for general adult medical examination without abnormal findings (principal); K21.9 Gastro-esophageal reflux disease without esophagitis; N40.0 Benign prostatic hyperplasia without lower urinary tract symptoms; I44.4 Left anterior fascicular block; H61.23 Impacted cerumen, bilateral; E78.00 Pure hypercholesterolemia, unspecified; H35.30 Unspecified macular degeneration; R73.03 Prediabetes; Z71.89 Other specified counseling; Z12.5 Encounter for screening for malignant neoplasm of prostate; Z13.89 Encounter for screening for other disorder; Z12.11 Encounter for screening for malignant neoplasm of colon; Z79.899 Other long term (current) drug therapy
CPT/HCPCS: 36415; 69209; 80053; 80061; 82043; 82306; 82570; 82607; 82746; 83036; 84153; 84443; 85027; 93005; 96127

== ENCOUNTER 2025-04-03 08:00 | Outpatient (AMB) | payer BC, SELFPAY ==
--- OUTSIDE RECORDS SUMMARY | 2013-07-25 08:50 | XMS_ITS | Continuity of Care Document ---
Author Organization [facility] Address [address] [place] [address] Phone Care Team Providers Care Production Welder Name Role Phone Unavailable Unavailable Unavailable Allergies, Adverse Reactions, Alerts Substance Reaction Status Criticality No Known allergies Medications Medication Instructions Dosage Effective Dates (start - stop) Status Comments Aspir-81 81 mg tablet,delayed release take 1 tablet (81MG) by oral route every day - Active Advance Directives Directive Yes / No Effective Date File Name No Information Encounters Encounter Description Practice Location Reason(s) For Visit Diagnoses Date Provider Providers Copied on Encounter [facility], [address], [place], [id number], tel:[phone] [place] No Information No Information [facility], [address], [place], [id number], tel:[phone] [place] Part Detach-singl DefecVitreous DegenerationLat bre DegenerationSen ile Nuclear Cataract 3 No Information Family History Family Member Type Diagnosis Age At Onset Father Problem (finding) HBP Payers Payer name Insurance type Covered libertarian ID Authoriza tion(s) Commercial Secondary CI [id number] Social History Type Description Quantity Date Captured Comments Sex Male Smoking Status No Information Chief Complaint And Reason For Visit No Information Reason For Referral Reason For Referral No Information History Of Present Illness Encounter Date Complaint History Of Prese nt Illness No Information Functional Status Date Functional Assessmen t No Information Instructions Date Instruction Additional Infor mation Posterior Vitreous D etachment OU - No retinal breaks or evidence of detachment were identified OD. The diagnosis, natural history, and prognosis of PVD were discussed at length. The signs and symptoms of retinal break/detachment including increased flashes, new-onset floaters, and development of a shadow/curtain shade in the visual field were reviewed. Related to Posterior Vitreous Detachment Lattice Degeneration OD - At this time, no retinal tear or retinal detachment is identified. Retinal detachment symptoms were reviewed. Patient was encouraged to call our office if there is an increase in floaters, decrease in vision, or a shadow or curtain is noted in their peripheral vision. 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 Related to Senile Nuclear Cataract Part Detach-singl De fec OS - Keith, I agree with your assessment of a retinal detachment OS. Unfortunately, the RD is macula off. The diagnosis, natural history, and prognosis of rhegmatogenous retinal detachment, as well as the risks and benefits of surgical intervention versus observation were discussed at length. To reduce the risk of further visual loss, surgical correction is strongly recommended. The patient was informed of various surgical techniques; altitude precautions with a gas bubble, including the danger of loss of the eye with travel to a higher altitude or flying; and the possible need to update spectacle correction if a scleral buckle is used. The patient understands that the vision usually improves gradually over a period of several months to 1 year, but may not improve to prior levels. As the patient is traveling from [place], he prefers to head home for evaluation and treatment, which is a resonable decision.PRN @ [facility] Related to Part Detach-singl Defec Assessments Type Assessment Date No Information Patient Care Teams Name Effective Dates (start - stop) Status Members No Information
--- OUTSIDE RECORDS SUMMARY | 2025-02-03 09:50 | XMS_ITS | Continuity of Care Document ---
Author Organization [facility] Address [address] [address] [place] [address] Phone Care Team Providers Care Grinding Operator Name Role Phone Yenni Saldivar MD Unavailable [...] Date Provider Providers Copied on Encounter [facility], [address] [address], [place], [place], [address], tel:[phone] [facility] No Information 5 Yariel Hyman. [address], [facility] [place], [address], . tel:[phone] [facility], [address] [address], [place], [place], [address], tel:[phone] [facility] Patient is here for a complete ocular exam. (chief complaint) Open angle with borderline findings, low risk, bilateral H40.013;Benig n neoplasm of left choroid D31.32Dry eye syndrome of bilateral lacrimal glands H04.123 4 Yariel Hyman. [address], [place], [place], [address], . tel:[phone] Referring Provider: Yenni Gonzalez, [address], [place], [address] . tel:[phone] [facility], [address] [address], [place], [place], [address], tel:[phone] [facility] The patient is here for a visual field exam. 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 [address], [address], [place], [place], [address], [place]. tel:[phone] Referring Provider: Yenni Gonzalez, [address], [place], [address] . tel:[phone] [facility], [address] [address], [place], [place], [address], tel:[phone] [facility] No Information Oct- 2 Yariel Hyman. [address], [address], [place], [place], [address], [place]. tel:[phone] Referring Provider: Yenni Gonzalez, [facility] [address], [place], [address] . tel:[phone] [facility], [address] [address], [place], [place], [address], tel:[phone] [facility] Open angle with borderline findings, low risk, bilateral Apr- 2 Yariel Hyman. [address], [address], [place], [place], [address], [place]. tel:[phone] Referring Provider: Yenni Gonzalez, [address], [place], [address] . tel:[phone] [facility], [address] [address], [place], [place], [address], tel:[phone] [facility] The patient is here for a complete exam. (chief complaint) Open angle with borderline findings, low risk, bilateral H40.013Pseudo phakia Z96.1 Sep-0 2 Yariel Hyman. [address], [address], [place], [place], [address], [place]. tel:[phone] Referring Provider: Yenni Gonzalez, [address], [place], [address] . tel:[phone] [facility], [address] [address], [place], [place], [address], [phone] [facility] Patient is here to get an updated glasses prescription. (chief complaint) Benign neoplasm of left choroid D31.32Presbyo guillermo H52.4 1 Yariel Gama [address], [address], [place], [place], [address], [place]. [phone] [facility], [address] [address], [place], [place], [address], [phone] [facility] Other secondary cataract, right eye 9 Yariel Gama [address], [address], [place], [place], [address], . [phone] [facility], [address] [address], [place], [place], [address], [phone] [facility] Patient is here for an annual ocular health evaluation. (chief complaint) Benign neoplasm of left choroid D31.32S/p retinal detachment repair Z98.890PCO (posterior capsule opacification ), left eye H26.492 9 Yariel Gama [address], [address], [place], [place], [address], [place]. [phone] [facility], [address] [address], [place], [place], [address], [place] [phone] [facility] Patient is here for a 6 month pseudophakic evaluation. (chief complaint) Pseudophakia Z96.1S/p retinal detachment repair Z98.890Benign neoplasm of left choroid D31.32 Sep- 8 Yariel Gama [address], [address], [place], [place], [address], [place]. tel:[phone] Referring Provider: Yenni Gonzalez, [address], [place], [address] . tel:[phone] [facility], [address] [address], [place], [place], [address], tel:[phone] [facility] Pseudophakia Z96.1; 8 Yariel Hyman. [address], [address], [place], [place], [address], . tel:[phone] Office/outpa tient visit,est, [facility], [address] [address], [place], [place], [address], tel:[phone] Adelaida Georges Patient here for strabismus consult (chief complaint) Diplopia H53.2; 8 Andres Michele. [address], [address], [place], [place], [address], . [phone] [facility], [address] [address], [place], [place], [address], tel:[phone] [facility] The patient is here for a 1 month post-op (chief complaint) Pseudophakia Z96.1;Diplopi a H53.2 8 Yariel Hyman. [address], [address], [place], [place], [address], . tel:[phone] Referring Provider: Yenni Gonzalez, [address], [place], [address] . tel:[phone] [facility], [address], [place], [address], tel:[phone] [facility] The patient is here for a 1 week post-op (chief complaint) Pseudophakia Z96.1 8 No Information [facility], [address] [address], [place], [place], [address], tel:[phone] [facility] The patient is here for a 1 day post-op right eye. (chief complaint) Pseudophakia Z96.1 8 No Information Referring Provider: Yenni Gonzalez, [address], [place], [address] . tel:[phone] [facility], [address] [address], [place], [place], [address], tel:[phone] [facility] No Information 8 Yariel Hyman. [address], [address], [place], [place], [address], [place]. [phone] Referring Provider: Yenni Gonzalez, [address], [place], [address] . tel:[phone] [facility], [address] [address], [place], [place], [address], tel:[phone] [facility] Patient presents for cataract consult follow up (chief complaint) Age-related nuclear cataract, right eye H25.11Pseudop hakia Z96.1S/p retinal detachment repair Z98.890Blepha ritis of right upper eyelid H01.001 8 Yariel Hyman. [address], [address], [place], [place], [address], [place]. tel:[phone] Referring Provider: Yenni Gonzalez, [address], [place], [address] . tel:[phone] [facility], [address] [address], [place], [place], [address], [place] [phone] [facility] Age-related nuclear cataract, right eye 8 Yariel Hyman. [address], [address], [place], [place], [address], [place]. tel:[phone] Referring Provider: Yenni Gonzalez, [address], [place], [address] . tel:[phone] [facility], [address] [address], [place], [place], [address], tel:[phone] [facility] Yearly Ocular health exam. (chief complaint) Age-related nuclear cataract, right eye H25.11;Pseudo phakia Z96.1;S/p retinal detachment repair Z98.890 Apr-0 7 Yariel Hyman. [address], [address], [place], [place], [address], [place]. tel:[phone] Referring Provider: Yenni Gonzalez, [address], [place], [address] . tel:[phone] Office/outpa tient visit,[facility], [facility], [address] [address], [place], [place], [address], tel:[phone] [facility] The patient is here for a 1 week follow up for keratiti (chief complaint) Entropion of lt upper eyelid H02.004 7 No Information Office/outpa tient visit,[facility], [address] [address], [place], [place], [address], tel:[phone] [facility] The patient is here for an urgent visit for irritation (chief complaint) Superficial keratitis of left eye H16.102 7 No Information [facility], [address] [address], [place], [place], [address], [place] tel:[phone] [facility] The patient is here for a cataract check (chief complaint) Age-related nuclear cataract, right eye H25.11Pseudop hakia Z96.1S/p retinal detachment repair Z98.89 Sep- 6 Yariel Hyman. [address], [address], [place], [place], [address], . tel:[phone] Referring Provider: Yenni Gonzalez, [facility] [address], [address] . tel:[phone] [facility], [address] [address], [place], [place], [address], tel:[phone] [facility] No Information 6 Yariel Hyman. [facility] [address], [place], [place], [address], . tel:[phone] Referring Provider: Yenni Gonzalez, [facility] [address] [facility], [place], [address] . tel:[phone] [facility], [address], [place], [address], [phone] [facility] Patient is here for a cataract evaluation. (chief complaint) Age-related nuclear cataract, right eye H25.11Pseudop hakia Z96.1Posterio r capsule opacification , left eye H26.492 6 Yariel Hyman. [facility] [address], [address] [place] [address], [address], . tel:[phone] Referring Provider: Yenni Gonzalez, [facility] [address] [place] [address], [address] . tel:[phone] [facility], [address] [address], [place], [place], [address], tel:[phone] [facility] Patient is here for a yearly retinal exam. (chief complaint) Benign neoplasm of choroid 224.6S/P TPPV/MP/endol aser/gas V45.69Disorde r of refraction and accommodation ,unspecified 367.9Nuclear sclerosis senile cataract 366.16Posteri or Vitreous Detachment 379.21Age-rel ated nuclear cataract, right eyeUnspecifie d disorder of refractionVit reous degeneration, right eye Sep-0 2 5 Johnathan Merchantok. [address] [place] [address], [address], [place]. [phone] Referring Provider: Percy Edmondson, [address], [place], [address] . tel:[phone] Office/outpa tient visit,[facility], [facility], [address] [address], [place], [place], [address], tel:[phone] Adelaida Georges Patient is here for a diplopia follow up. (chief complaint) Diplopia 368.2 3-201 4 Andres Michele. [address], Suite [facility], [place], [place], [address], [place]. [phone] Referring Provider: Ryne Campos [address] [place] [address] [address] [place] [address], [address] . tel:[phone] Office/outpa tient visit,[facility], [facility], [address] [address], [place], [place], [address], tel:[phone] [facility] Patient is here for a diplopia follow up. (chief complaint) Diplopia 368.2S/P TPPV/MP/endol aser/gas V45.69 Oct-0 8201 4 Andres Michele. [address], [address] [place] [address], [address], [place]. [phone] Referring Provider: Ryne Campos [address] [place] [address] [address] [place] [address], [address] . tel:[phone] [facility], [address] [address], [place], [place], [address], [place] tel:[phone] [facility] Double vision consult today. (chief complaint) Diplopia 368.2 Aug-0 5-201 4 Andres Michele. [facility] [address], [address] [place] [address], [address], [place]. tel:[phone] Referring Provider: Yenni Gonzalez, [address], [place], [address] . tel:[phone] [facility], [address] [address], [place], [place], [address], [place] tel:[phone] [facility] The patient is here for a follow up exam s/p -PPV, Int (chief complaint) S/P TPPV/MP/endol aser/gas V45.69Posteri or Vitreous Detachment 379.21Nuclear sclerosis senile cataract 366.16Pseudop hakic V43.1 4 Johnathan Greer. [address], [place], [place], [address], [place]. tel:[phone] Referring Provider: Percy Edmondson, [address], [place], [address] . tel:[phone] [facility], [address] [address], [place], [place], [address], [place] tel:[phone] [facility] Patient is here for a 1 month post-op s/p cataract surg (chief complaint)Pat ient states his vision has been doing well in his ri (chief complaint) S/P cataract removal with IOL V43.1S/P TPPV/MP/endol aser/gas V45.69 4 Yariel Hyman. [address], [address], [place], [place], [address], [place]. tel:[phone] Referring Provider: Yenni Gonzalez, [address], [place], [address] . tel:[phone] [facility], [address] [address], [place], [place], [address], [place] tel:[phone] [facility] The patient is here for a 2 week cataract post-op (chief complaint) S/P cataract removal with IOL V43.1S/P TPPV/MP/endol aser/gas V45.69 8201 4 Yariel Hyman. [facility] [address], [address], [place]. tel:[phone] Referring Provider: Yenni Gonzalez, [facility] [address], [place], [address] . tel:[phone] [facility], [address] [address], [place], [place], [address], [phone] [facility] S/P cataract removal with IOL V43.1S/P TPPV/MP/endol aser/gas V45.69 4 Yariel Hyman. [facility] [address], [place], [address], [place]. tel:[phone] [facility], [address] [address], [place], [place], [address], [phone] [facility] Patient is here for a 1 week cataract post-op exam. (chief complaint) S/P cataract removal with IOL V43.1S/P TPPV/MP/endol aser/gas V45.69 4 Jaquan Justin. [facility] [address], [place], [address]. tel:[phone] Referring Provider: Yenni Gonzalez, [facility] [address], [place], [address] . tel:[phone] [facility], [address] [address], [place], [place], [address], tel:[phone] [facility] Patient here for a 1 day post-op s/p cataract surgery. (chief complaint) Lens replaced by prosthesisPos t-Proc St Eye/Adn Nec 0 4 Jaquan Anderson. [facility] [address], [place], [place], [address]. tel:[phone] Referring Provider: Yenni Gonzalez, [address], [place], [address] . tel:[phone] [facility], [address] [address], [place], [place], [address], [place] tel: [phone] [facility] No Information 4 Yariel Hyman. [address], [address], [place], [place], [address], [place]. tel:[phone] Referring Provider: Yenni Gonzalez, [address], [place], [address] . tel:[phone] [facility], [address] [address], [place], [place], [address], [place] tel: [phone] [facility] No Information 4 Yariel Hyman. [address], [address], [place], [place], [address], [place]. tel:[phone] Referring Provider: Yenni Gonzalez, [address], [place], [address] . tel:[phone] [facility], [address] [address], [place], [place], [address], [place] tel:[phone] [facility] Patient is here for a cataract consultation exam. (chief complaint) Nuclear sclerosis senile cataractPost- Proc Eye/Adn Nec 4 Yariel Hyman. [address], [address], [place], [place], [address], [place]. [phone] Referring Provider: Percy Edmondson, [address], [place], [address] . tel:[phone] [facility], [address] [address], [place], [place], [address], [place] tel:[phone] [facility] Patient here for [address] repair., left eye (chief complaint) Post-Proc St Eye/Adn NecVitreous DegenerationN uclear sclerosis senile cataract 4 Mannmagdiel Greer. [address], [place], [place], [address], [place]. tel: [phone] Referring Provider: Percy Edmondson, [address], [place], [address] . tel:[phone] [facility], [address] [address], [place], [place], [address], [place] tel:[phone] [facility] Patient presents for a 2month follow up due to S/P TPPV (chief complaint) Post-Proc St Eye/Adn NecNuclear sclerosis senile cataract Oct-2 4 Johnathan Greer. [address], [place], [place], [address], [place]. tel:[phone] Referring Provider: Percy Edmondson, [address], [place], [address] . tel:[phone] [facility], [address] [address], [place], [place], [address], [place] tel:[phone] [facility] Patient is here for 2 week follow up for Recurrent Reti (chief complaint) Post-Proc St Eye/Adn Nec Oct-0 4 Johnathan Greer. [address], [place], [place], [address], [place]. tel:[phone] Referring Provider: Percy Edmondson, [address], [place], [address] . tel:[phone] [facility], [address] [address], [place], [place], [address], [place] tel:[phone] [facility] Patient is here for 2 week PPV/MP post-op in left eye. (chief complaint) Post-Proc St Eye/Adn NecPosterior subcapsular polar senile cataract Sep-2 4 Johnathan Greer. [address], [place], [place], [address], [place]. [phone] [facility], [address] [address], [place], [place], [address], [place] [phone] [facility] The patient is here for a 1 week post-op for Retinal de (chief complaint) Post-Proc St Eye/Adn Nec Sep- 4 No Information Referring Provider: Percy Edmondson, [facility] [address], [place], [address] . tel:[phone] [facility], [address] [address], [place], [place], [address], [place] tel:[phone] [facility] The patient is here for a 1 day post-op s/p PPV for RD (chief complaint) Post-Proc St Eye/Adn Nec Sep-0 4 Johnathan Greer. [address], [place], [place], [address], [place]. [phone] Referring Provider: Percy Edmondson, [address], [place], [address] . tel:[phone] [facility], [address] [address], [place], [place], [address], [place] tel:[phone] [facility] No Information Sep-0 4 Johnathan Greer. [address], [place], [place], [address], [place]. [phone] Referring Provider: Rome Sanchez, [address], [place], [address] . tel:[phone] [facility], [address] [address], [place], [place], [address], [place] tel:[phone] [facility] Surgery follow-up on TPPV, MP, Triam Assist Left eye do (chief complaint) Post-Proc St Eye/Adn NecSenile cataract, unspecifiedRh egmatogenous retinal detachment,re cent, with retinal defect Sep-0 4 Amy Peter. [address], [place], [place], [address], [place]. [phone] Referring Provider: Rome Sanchez, [address], [place], [address] . tel:[phone] [facility], [address] [address], [place], [place], [address], [place] tel:[phone] [facility] Patient here for 1 day post operative visit on TPPV, MP (chief complaint) Post-Proc St Eye/Adn NecSenile cataract, unspecified 4 Amy Peter. [address], [place], [place], [address], [place]. [phone] Referring Provider: Rome Sanchez, [address], [place], [address] . tel:[phone] [facility], [address] [address], [place], [place], [address], [place] [phone] [facility] No Information 4 Amy Peter. [address], [place], [place], [address], [place]. [phone] Referring Provider: Rome Sanchez, [address], [place], [address] . tel:[phone] [facility], [address] [address], [place], [place], [address], [place] [phone] [facility] The patient is for 1 month follow up with OCT (chief complaint) Post-Proc St Eye/Adn NecMacular puckering of retinaSenile cataract, unspecified 4 Amy Rome. [address], [place], [place], [address], [place]. [phone] Referring Provider: Rome Sanchez, [address], [place], [address] . tel:[phone] [facility], [address] [address], [place], [place], [address], [place] [phone] Adelaida Georges Patient here for 2 week post operative visit on retinal (chief complaint) Post-Proc St Eye/Adn NecMacular puckering of retinaSenile cataract, unspecified 4 Amy Rome. [address], [place], [place], [address], [place]. [phone] Referring Provider: Rome Sanchez, [address], [place], [address] . tel:[phone] [facility], [address] [address], [place], [place], [address], [place] [phone] Adelaida Georges The patient presents for a 1 week follow-up, S/P Retina (chief complaint) Post-Proc St Eye/Adn NecMyopiaSeni le cataract, unspecified 4 Amy Rome. [address], [place], [place], [address], [place]. tel:[phone] Referring Provider: Percy Edmondson, [address], [place], [address] . tel:[phone] [facility], [address] [address], [place], [place], [address], [place] tel:[phone] [facility] The patient is here for a 1 day post-op for a retinal d (chief complaint) Post-Proc St Eye/Adn Nec Jun-3 3 Mann Percy. [address], [place], [place], [address], [place]. tel:[phone] Referring Provider: Percy Edmondson, [address], [place], [address] . tel:[phone] [facility], [address] [address], [place], [place], [address], [place] [phone] [facility] Retinal detachment, unspecified 3 Yariel Hyman. [address], [place], [place], [address], [place]. tel:[phone] Referring Provider: Yenni Gonzalez, [facility] [address], [place], [address] . tel:[phone] [facility], [address] [address], [place], [place], [address], [place] [phone] [facility] No Information 3 Amy Peter. [address], [place], [place], [address], [place]. tel:[phone] [facility], [address] [address], [place], [address], [place] [phone] [facility] Patient is here for a complete ocular health exam. (chief complaint) SENILE NUCLEAR CATARACTTEAR FILM INSUFFIC NOSMYOPIABENI GN NEOPLASM CHOROIDBENIGN NEOPLASM CHOROID 2 Yariel Hyman. [address], [address], [place], [place], [address], [place]. tel:[phone] Referring Provider: Yenni Gonzalez, [facility] [address], [place], [address] . tel:[phone] Family History Family Member Type Diagnosis Age At Onset Father Problem (finding) Hypertension Sister Problem (finding) Cancer Father Problem (finding) Heart Disease Sister Problem (finding) cataract Payers Payer name Insurance type Covered democrat ID Aiyana garduno(s) [facility] Medicare Advantage PPO CI [id number] Social History Type Description Quantity Date Captured Comments Alcohol Use Details Unknown Caffeine Use Details Unknown Tobacco Use Status No Information Smoking Status No Information Sex Male Chief Complaint And Reason For Visit No Information Reason For Referral Reason For Referral No Information Plan Of Treatment Date Type Action Status Appointment Shane Mathews BOOKED Patient Education Cataracts: Care Instruc randy completed History Of Present Illness Encounter Date [...] can see well for distance vision with. {eyeSaint [facility] Fort ThomasefComplai [email or web address]_comments} {eyeChiefComplai nt_.cc3_comments} The patient is here [...] dosages of drops later in the day. {eyeChiefComplai nt_.cc3_comments} Left eye has irr itation for the last few days, possibly due to dryness. Patient presents for cataract consult follow up [...] findings, low risk, bilateral H40.013; - - No heme/ edema/ orange pigment- Will re-evaluate on return visit. 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 Re lated [...] left choroid D31.32 - Explained in sienna romero diagnosis with patient. New glasses prescription given [...] Related to Pseudophakia Z96.1 - - Counseled patien t on exam findings- Increase artificial tears [...] to Pseud ophakia Z96.1 - - Counseled patien t on exam findings- Offered cataract extraction [...] left eye H16.102 Cataracts: Care Instructions [facility] - - Monitor annually with dilate d [...] Posterior capsule opacification, left eye H26.492 - No treatment curre ntly recommended due to [place] level. Patient will monitor vision changes and contact us with any decrease in vision, will re-evaluate cataract on return visit. Related to Age-related nuclear cataract, right eye H25.11; - - Counseled patien t on exam findings- Offered YAG OS. R/B/A/C discussed. Patient agrees and wishes to proceed. - Schedule at [facility] office. Related to Posterior capsule opacification, left eye H26.492 - - See plan #3 Related to Pseud ophakia Z96.1; - Patient was counse led on cataract [...] times a day as instructed. Will at [facility] TID due to altitude. Patch, shield, and [...] 224. 6 OS - Normal appearance, no SRF/Heme/Turner pigment - -Discussed exam findings with the [...] senile cataract 366.16 Assessments Type Assessment Date No Information Patient Care Teams Name Effective Dates (start - stop) Status Members No Information
--- OUTSIDE RECORDS SUMMARY | 2025-04-03 08:03 | XMS_ITS | Patient Health Record ---
Author Organization [facility] Address [address] [place] [id number] Care Team Providers Care Surface Boss Name Role Phone Alton Vegas Primary Care Provider Unavailab Hunter Key Jr Unavailable [phone] Reason For Referral No Information Medications Medication [...] Problem Status W/U Status Risk Notes Problem [id number] Colon cancer screening (Z12.11) Active confirmed Problem [id number] Nausea (R11.0) Active confirmed Encounters Encounter Location Date Provider Diagnosis [facility] [address] [place] [id number] 11/04/2024 Hunter Boyce Jr Plan Of Treatment Future Test Test Name Order Date COLONOSCOPY 07/03/2012 COLONOSCOPY 04/24/2018 Insurance Providers Payer Name Payer Address Payer Phone Subscriber Number Group Number Insured Name Patient Relationship to Insured Coverage Start Date Coverage End Date [facility] [address] [place], [place] [id number] [employer] Self - patient is the insured Medical (General) History Medical History History ICD Code Tubular adenoma and hyperplastic polyps Reflux Elevated cholesterol Enlarged prostate Migraines Denies GA,DM,CVA,Lung disease,renal dise ase sinus allergies Surgical History Surgery Date(Month/Year) Knee surgery Tonsillectomy Removal of fatty tumor from the chest wa ll. dnetal surgery
--- OUTSIDE RECORDS SUMMARY | 2025-04-03 08:03 | XMS_ITS | Clinical Summary ---
Author Organization [facility] Address [address] [facility] [address] [place] [phone] Phone Care Team Providers Care Pet Stylist Name Role Phone Alton Vegas MD Primary Care Provider Allergies No known active allergies Medications omeprazole (PRILOSEC) 20 MG capsule Take 20 mg by mouth daily. Active glucosamine-cho ndroitin 500-400 mg Cap Take 1,500 capsules by mouth 3 (three) times a day. Active ascorbic acid, vitamin C, (VITAMIN C) 250 MG tablet Take 250 mg by mouth daily. Active tetrahydr/dex/P EG (EYE DROPS ADVANCED RELIEF) 0.05-0.1-1-1 % Drop ophthalmic solution Place 1 drop into each eye 4 (four) times a day. Active pravastatin (PRAVACHOL) 40 MG tablet Take 1 tablet by mouth every morning. 10/12/2022 Active Active Problems No known active problems Immunizations Immunization Administration Dates Next Due Influenza High-Dose Quadrivalent Preservative Fr ee IM 04/14/2020 Influenza High-Dose Trivalent Preservative Free IM 05/29/2019,04/30/2018 Influenza Quadrivalent Adjuvanted Preservative F ree IM 04/15/2021 Influenza Trivalent Adjuvanted Preservative free IM 04/19/2019 Pneumococcal conjugate PCV13 04/17/2017 Pneumococcal polysaccharide PPSV23 04/30/2018 Td (adult),2 Lf Tetanus Toxoid, PF, Adsorbed Social History Tobacco Use Types Packs/Day Years Used Date Smoking Tobacco: Never Smokeless Tobacco: Never Tobacco Cessation:Counseling Given: Not Answered Alcohol Use Standard Drinks/Week Comments Yes 0 (1 standard drink = 0.6 oz pur e alcohol) occasionally Education Answer Date Recorded Are you interested in more education? Not on arlene e 11/24/2022 Are you concerned about learning? Not on file 11/24/2022 No 11/24/2022 No 11/24/2022 Digital Access Answer Date Recorded No 12/23/2022 No 12/23/2022 Reliable internet access at home? Not on file 12/23/2022 Device with a working camera? Not on file Sex and Gender Information Value Date Recorded Sex Assigned at Not on file Legal Sex Male 10:13 AM EST Gender Identity Not on file Sexual Orientation Not on file Last Filed Vital Signs Vital Sign Reading Time Taken Comments Blood Pressure 164/81 06/26/2023 8:36 AM EST Pulse 68 06/26/2023 8:36 AM EST Temperature 37.1 C (98.7 F) 06/26/2023 8:36 AM EST Respiratory Rate 18 06/26/2023 8:36 AM EST Oxygen Saturation 100% 06/26/2023 8:36 AM EST Inhaled Oxygen Concentration - - Weight 76.2 kg (168 lb) 11/20/2022 8:59 AM EDT Height 172.7 cm (5' 8 ) 11/20/2022 8:59 AM EDT Body Mass Index 25.54 11/20/2022 8:59 AM EDT Plan of Treatment Health Maintenance Due Date Last Done Comments LIPID PANEL 1945 DEPRESSION SCREENING 1957 ZOSTER VACCINES (1 of 2) 1995 RSV VACCINE (1 - 1-dose 75+ series) 2020 INFLUENZA VACCINE (#1) 2025 , 04/14/2020, 05/29/2019, Additional history exists COVID-19 VACCINE (2024- season) 2025 11/08/2020, 10/18/2020 Adult Td,Tdap Booster 09/25/2029 09/25/2019 PNEUMOCOCCAL VACCINES (50+ years) Completed 04/30/2018, 04/17/2017 SMOKING STATUS SCREENING (Once After 26 Yrs) Completed 06/26/2023 HEPATITIS A VACCINES Aged Out No long er eligible based on patient's age to complete this topic HIB VACCINES Aged Out No longer eligi ble based on patient's age to complete this topic MENINGOCOCCAL VACCINES (ACWY) Aged Out No longer eligible based on patient's age to complete this topic MENINGOCOCCAL VACCINES (B) Aged Out N o longer eligible based on patient's age to complete this topic Medical Devices Not on file [place] [address] [place] [address] [place] [address] [place] [address] MEDICARE A MEDICARE A MEDICARE A MEDICARE A [place] [address] [place] [address] [place] [address] [place] [address] [place] [address] [place] [address] MEDICARE A Care Teams Pet Stylist Relationship Specialty Start Date End Date Alton Vegas MD [address] [place] [address] PCP - General 06/15/19 Additional Source Comments The information contained in this document represents components of the legal health record. It is not the complete legal health record.[facility]
--- NOTE | 2025-04-03 08:04 | A.OFFVIS_ITS ---
Intake Vital Signs 04/03/25 08:15 04/03/25 08:55 Height 5 ft 8 in Weight 179 lb 2 oz BMI 27.2 BP 142/78 H 136/74 Blood Pressure Location Lt brachial Lt brachial Position Sitting Sitting Respiration 13 Pulse 75 Pulse Source Pulse Oximeter Temp 97.1 F Temp Source Oral Pulse Oximetry (%) 98 Oxygen Delivery Method Room Air Intake Visit Reasons: CPE Intake Note: AWV [employer] Work[employer] Required: No Allergies No Known Allergies (No Known Allergies*) Allergy (Verified 04/03/25 08:11) Medication List - Last Reconciled 04/03/25 by Tyesha Garcia, LAND ACQUISITION MANAGER-BC clobetasol 0.05% 1 appl topical DAILY PRN 30 days no-wy-eh5-vao-ttw-apek-lut-geronimo 250 mg (90 mg-160 mg) (Ocuvite Adult 50 Plus) 1 cap PO DAILY omeprazole 20 mg PO DAILY 90 days pravastatin 40 mg PO DAILY 90 days sildenafil 100 mg PO DAILY PRN 30 days Do you need a note to return to daycare/school/sports/work: No HPI HPI Comments History of Present Illness Details Here today for AWV. The Medicare Annual Wellness Visit (AWV) is a yearly appointment with a health professional to identify health risks and help reduce them and to create or update a personalized prevention plan. During a Medicare AWV, health professionals should also review any current opioid prescriptions, detect any cognitive impairment, and establish or update medical and family history. 80 y/o M with BPH, HLD, ED, GERD, predia betes, macular degeneration SurgHx: Y FHx Y Grandson born 7 weeks ago, Charles SocHx: Y Health Maintenance: See scanned preventative medicine assessment with personalized health plan and screening schedule. Colon: 2018, cologaurd ordered today Vaccines: UTD. Advised to get flu at pharmacy. AAA screen: NA EKG: done today L anterior fascicular block; denies sx. Declined cards referral. [place] of Care: As documented in chart Visual Acuity: wears glasses, active w/ Optho. Declined in office screening today as he forgot his glasses. Hearing Screening: no concerns ACP: HCP unsure, Does not have Will or MOLST Dietary/Nutrition/Exercise Edu provided: Y Labs 02/2024 LDL 115, PSA 1.33 During the course of the visit the patient was educated and counseled about appropriate screening and preventative services. Patient instructions were provided to the patient in written or electronic format. I have reviewed and verified the above information. History of Present Illness - The patient is an 80-year-old male pre senting with an annual Medicare wellness visit. - Prediabetes managed with diet, noted A 1c 6.1%. - Hyperlipidemia managed with pravastati n 40 mg daily. - Chronic GERD managed with omeprazole. - Erectile dysfunction, treated with lindsey denafil. - Age-related macular degeneration, inje ctions in the past, stable vision presently. - Denies significant hearing loss; some difficulty in settings. - Reports shortness of breath with exert ion, normal , denies dizziness, fainting or chest pain. - No changes to family history; denies r ecent surgeries. - Left anterior fascicular block noted i n EKG. Social History - Lives independently with . - Engages in gardening and yard work for exercise. - Reports ceasing regular walking due to weather and busyness. - Plans to hire assistance for yard work maintenance. - Consumes a diet compliant with managin g prediabetes. Health Maintenance - Discussed following healthy lifestyle interventions including diet and walking for exercise. - A1c monitored at 6.1% to assess predia betic state. - Colonoscopy review and plan for possib le future screenings. - EKG performed showing left anterior fa scicular block. - Encouraged precaution and regular sonal toring for age-related macular degeneration. - Discussed Cologuard as an alternative to colonoscopy for colorectal cancer screening. Review of Systems - Ophthalmologic: Reports stable vision with existing condition of macular degeneration. - Cardiovascular: Denies chest pain or d izziness; reports shortness of breath with exertion. - Gastrointestinal: Denies changes in mere wel habits; reports history of GERD. - Genitourinary: Denies issues with urin ation. - Musculoskeletal: Engages in physical a ctivities but reports shortness of breath. - Neurologic: Denies fainting or signifi cant dizziness. - Integumentary: Reports occasional ecze ma. . Occasional eczema noted, managed with cream. - Ears: Denies significant hearing loss. Physical Exam General: Well developed, well nourished, in no acute distress. Appears stated age. Head: Normocephalic, atraumatic. Eyes: Pupils are equal, round and reactive to light and accommodation. Conjunctivae are clear. Vision grossly normal. P Ears: .Cerumen impaction bilat , flushed during visit. Nose: Patent, without discharge. Neck: Supple, no adenopathy or thyromegaly. Breast: Edu on SBE Lungs: Clear to auscultation bilaterally. No rales, rhonchi or wheeze noted. Good air flow in all avila. Heart: Regular rate and rhythm. No murmurs, click, rubs or gallops are noted. EKG shows left anterior fascicular block, patient asymptomatic. Abdomen: Bowel sounds present in all quadrants. The abdomen is soft, nontender, with no masses or organomegaly noted. No hernias are noted. : Deferred. Reviewed MOSES & recommendations Pulses: Peripheral pulses are equal and palpable bilaterally. Extremities: No clubbing, cyanosis nor edema is noted. Toenail on one foot is discolored due to past trauma, not currently bothersome. Neurologic: Gait and station normal. Cranial Nerves 2-12 intact. Motor strength grossly symmetrical and intact. No sensory loss. Balance normal. Cognitive screening performed, results normal. Skin: No rashes, ulcers, or lesions noted. Turgor is good. Skin color is good. Hair without abnormalities, onychymycosis L great toe nail Psych: Normal eye contact, affect and mood appropriate, and normal interactions. Patient is alert and appropriate to context. Results - Labs: A1c 6.1% indicating prediabetes. - Tests: EKG showing left anterior fasci cular block. Discussion Notes During the visit, I discussed the stable condition of the patient's prediabetes and its current management with dietary measures. I acknowledged the patient's decision to cease regular colonoscopy screenings due to previous complications but introduced Cologuard as a non-invasive alternative. I explained its function, coverage, and ordered it for the patient. We reviewed the findings of the EKG, detailing the left anterior fascicular block and its typical observation in older adults, and concurred on monitoring it without immediate intervention given the absence of symptoms. We agreed on maintaining his current medications and proactive health measures such as routine screenings and visits. I ensured that the patient understood the importance of regular follow-ups and maintaining a healthy lifestyle. Follow-up appointments were discussed for routine check-ups with the possibility of seeing Dr. Vegas in six months. Patient was given time to ask questions. All questions were answered to their satisfaction. Assessment and Plan 1. Prediabetes - Continue diet control. Monitor A1c. 2. Hyperlipidemia - Continue pravastatin. Check lipids in six months. 3. Chronic GERD - Continue omeprazole. Monitor symptoms. 4. Erectile Dysfunction - Continue sildenafil use as needed. 5. Macular Degeneration - Monitor vision. Follow specialist advapolonia ce. 6. Left Anterior Fascicular Block - Observe asymptomatic condition. Patient Instructions - Continue with dietary measures to brennan ge blood sugar. - Take prescribed medications as directe d. - Monitor symptoms and report any new or worsening symptoms. - Expect Cologuard to arrive via mail an d follow instructions. - Follow up with regular check-ups and s creenings as discussed. Consent Patient was informed and verbally consented to the use of an ambient scribe for clinic note documentation during this visit. An additional 30 minutes was spent addressing the problem(s) noted at todays visit. This includes time spent before the visit reviewing the chart, time spent during the visit, and time spent after the visit on documentation reviewing laboratory results, diagnostic imaging, medications, performing a medically necessary evaluation, counseling on diagnoses, care coordination, ordering appropriate tests, ordering appropriate medications, review of tests performed by other providers, reporting test results with the patient, communication with other healthcare providers. [facility] Surgical History Tear of meniscus of left knee History of tonsillectomy History of eye surgery Family History Father Parkinsons Mother Seizure Cerebral hemorrhage Brother Diabetes mellitus Sister Asthma Son No problems noted. Son No problems noted. Social History (Updated 04/01/24 @ 09:04 by Chilo Chaparro [facility]) Housing: House Patient Tobacco Use Status: Never used Tobacco e-Cigarette/Vaping Use: Never Used Second Hand Smoke Exposure: No service: Yes Current occupational status: retired Current occupational exposures/hazards: No Cognitive needs: No Hearing needs: No Vision needs: No Questionnaire Medicare Wellness Checkup What is your age?: 80 or older What gender do you identify with?: male During the past 4 weeks, how much have you been bothered by emotional problems such as feeling anxious, depressed, irritable, sad or downhearted, and blue?: not at all During the past 4 weeks, has your physical & emotional health limited your social activities with family, friends, neighbors, or groups?: not at all During the past 4 weeks, how much bodily pain have you generally had?: no pain During the past 4 weeks, was someone available to help you if you needed & wanted help?: yes, as much as I wanted During the past 4 weeks, what was the hardest physical activity you could do for at least 2 minutes?: light Can you get to places out of walking distance without help? (For eg., can you t ravel alone on buses, taxis or drive your car?): Yes Can you go shopping for groceries or clothes without someone's help?: Yes Can you prepare your own meals?: Yes Can you do your housework without help?: Yes Because of any health problems, do you need the help of another person with your personal care needs such as eating, bathing, dressing or getting around the house?: No Can you handle your own money without help?: Yes During the past 4 weeks, how would you rate your health in general?: excellent During the past 4 weeks how have things been going for you?: pretty well Are you having difficulties driving your car?: no Do you always fasten your seat belt when you are in a car?: yes, usually During past 4 weeks, have you been bothered by the following: never: Falling or dizzy when standing up, Sexual problems?, Trouble eating well?, Teeth or denture problems?, Problems using the telephone? and Tiredness or fatigue? Have you fallen 2 or more times in the past year?: No Are you afraid of falling?: No Are you a smoker?: no During the past 4 weeks, how many drinks of wine, beer, or other alcoholic beverages did you have?: no alcohol at all Do you exercise for about 20 minutes 3 or more times a week?: yes, some of the time Have you been given information to help with the following?: no: Hazards in your house that might hurt you? and no: Keeping track of your medications? How often do you have trouble taking medicines the way you have been told to take them?: I always take medicine as prescribed How confident are you that you can control & manage most of your health problems?: very confident What is your race?: White Activity of Daily Living Bathing - sponge bath, tub bath or shower: receives no assistance (gets in/out by self, if usual bathing means Dressing - getting clothes from closets & drawers, including inner/outer garments & fasteners.: gets clothes & gets completely dressed without help Toileting - going to the 'toilet room' for urine/bowel elimination & cleaning self/arranging clothes: goes to toilet room, cleans self, arranges clothes without help Transfer: moves in & out of bed and chair without help (may use support object) Continence: controls urination/bowel movements completely by self Feeding: feeds self without help Total Score: 0 Information obtained from: patient Using telephone: independent Traveling: independent Shopping: independent Preparing meals: independent Housework: independent Taking medicine: independent Managing money: independent PHQ-9 Over the last 2 weeks, how often have you been bothered by any of the following problems? 1. Little interest or pleasure in doing things: not at all 2. Feeling down, depressed, or hopeless: not at all 3. Trouble falling or staying asleep, or sleeping too much: not at all 4. Feeling tired or having little energy: not at all 5. Poor appetite or overeating: not at all 6. Feeling bad about yourself - or that you are a failure or have let yourself or your family down: not at all 7. Trouble concentrating on things, such as reading the newspaper or watching television: not at all 8. Moving or speaking so slowly that other people could have noticed. Or the opposite - being so fidgety or restless that you have been moving around a lot more than usual: not at all 9. Thoughts that you would be better off or of hurting yourself in some way: not at all Total score: 0 Depression Screening Interpretation: Negative Depression Screening Done: Yes 90496 - PHQ-9 Billing: Yes Source: Developed by Drs. Carlos Enrique Smith, Stella Bautista, Agus Willoughby and colleagues, with an educational frederick from [employer]. Physical Exam Vital Signs: Last Vital Signs Temp 97.1 F 09/05/25 08:15 Pulse 75 04/03/25 08:15 Resp 13 04/03/25 08:15 BP 142/78 H 04/03/25 08:15 Pulse Ox 98 04/03/25 08:15 Oxygen Delivery Method Room Air 04/03/25 08:15 BMI result Body Mass Index 27.2 Office Procedures Cerumen Removal From which ear canal was the cerumen removed: bilateral Removal: irrigation Notes: patient tolerated procedure well, no complications and ear canal clear [id number] Irrigation/Lavage EKG [id number], Complete Vision Screening Comments: dO NOT BILL, HE DECLINED THE EXAM [id number] - Vision Screening Results AMB Hemoglobin A1c AMB Hemoglobin A1c 6.1 % Last Edit by Cale Brooks MA on 04/03/25 08:28 Assessment & Plan Assessment & Plan (1) Encounter for subsequent annual wellness visit (AWV) in Medicare patient: Onset Date: ~04/03/25 Code(s): Z00.00 - Encounter for general adult medical examination without abnormal findings (2) ACP (advance care planning): Code(s): Z71.89 - Other specified counseling (3) Pre-diabetes: Code(s): R73.03 - Prediabetes (4) GERD (gastroesophageal reflux disease): Code(s): K21.9 - Gastro-esophageal reflux disease without esophagitis Qualifiers: Esophagitis presence: without esophagitis Qualified Code(s): K21.9 - Gastro-esophageal reflux disease without esophagitis (5) BPH (benign prostatic hyperplasia): Code(s): N40.0 - Benign prostatic hyperplasia without lower urinary tract symptoms Qualifiers: Lower urinary tract symptom presence: symptoms absent Qualified Code(s): N40.0 - Benign prostatic hyperplasia without lower urinary tract symptoms (6) Elevated LDL cholesterol level: Code(s): E78.00 - Pure hypercholesterolemia, unspecified (7) Macular degeneration of both eyes: Code(s): H35.30 - Unspecified macular degeneration Qualifiers: Nonexudative macular degeneration stage: unspecified stage (8) Left anterior fascicular block (LAFB) determined by electrocardiography: Onset Date: ~04/03/25 Code(s): I44.4 - Left anterior fascicular block (9) Impacted cerumen, bilateral: Code(s): H61.23 - Impacted cerumen, bilateral Plan . Orders: Orders Complete Blood Count no Diff Today E78.00 - Pure hypercholesterolemia, unspecif ied, R73.03 - Prediabetes, Z00.00 - Encounter for general adult medical examination without abnormal findings, Z12.5 - Encounter for screening for malignant neoplasm of prostate Microalbumin, Random (w Creat) Today E78.00 - Pure hypercholesterolemia, unspecified, R73.03 - Prediabetes, Z00.00 - Encounter for general adult medical examination without abnormal findings, Z12.5 - Encounter for screening for malignant neoplasm of prostate TSH reflex Free T4 Today E78.00 - Pure hypercholesterolemia, unspecified, R73.03 - Prediabetes, Z00.00 - Encounter for general adult medical examination without abnormal findings, Z12.5 - Encounter for screening for malignant neoplasm of prostate Vitamin B12 and Folate Today E78.00 - Pure hypercholesterolemia, unspecified, R73.03 - Prediabetes, Z00.00 - Encounter for general adult medical examination without abnormal findings, Z12.5 - Encounter for screening for malignant neopl asm of prostate Vitamin D 25-OH Total Today E78.00 - Pure hypercholesterolemia, unspecified, R73.03 - Prediabetes, Z00.00 - Encounter for general adult medical examination w ithout abnormal findings, Z12.5 - Encounter for screening for malignant neoplasm of prostate Lipid Panel 6 Months E78.00 - Pure hypercholesterolemia, unspecified, R73.03 - Prediabetes Comprehensive Dragoon. Panel Fast 6 Months E78.00 - Pure hypercholesterolemia, unspecified, R73.03 - Prediabetes AMB Hemoglobin A1c Today R73.03 - Prediabetes, Z13.9 - Encounter for screening, unspecified Comprehensive Met. Panel Today E78.00 - Pure hypercholesterolemia, unspecified, R73.03 - Prediabetes, Z00.00 - Encounter for general adult medical examination without abnormal findings, Z12.5 - Encounter for screening for malignant neoplasm of prostate Lipid Panel Today E78.00 - Pure hypercholesterolemia, unspecified, R73.03 - Prediabetes, Z00.00 - Encounter for general adult medical examination without abnormal findings, Z12.5 - Encounter for screening for malignant neoplasm of prostate Prostate Specific Antigen Scr Today E78.00 - Pure hypercholesterolemia, unspecified, R73.03 - Prediabetes, Z00.00 - Encounter for general adult medical examination without abnormal findings, Z12.5 - Encounter for screening for malignant neoplasm of prostate Hemoglobin A1c 6 Months E78.00 - Pure hypercholesterolemia, unspecified, R73.03 - Prediabetes Referrals Cologuard Test Z12.11 - Encounter for screening for malignant neoplasm of colon Medications: Refilled omeprazole 20 mg PO DAILY 90 caps 3RF 90 days sildenafil administer 30 minutes to 4 hours before activity 100 mg PO DAILY PRN 30 tabs 4RF sexual activity 30 days pravastatin 40 mg PO DAILY 90 tabs 3RF 90 days Patient Instructions: Patient Instructions - Continue with dietary measures to manage blood sugar. - Take prescribed medications as directed. - Monitor symptoms and report any new or worsening symptoms. - Expect Cologuard to arrive via mail and follow instructions. - Follow up with regular check-ups and screenings as discussed. - Return in 6 months w/labs. Health screenings for men You should visit your health care provider regularly, even if you feel healthy. The purpose of these visits is to: Screen for medical issues Assess your risk for future medical problems Encourage a healthy lifestyle Update vaccinations and other preventive care services Help you get to know your provider in case of an illness Information Even if you feel fine, you should still see your provider for regular checkups. These visits can help you avoid problems in the future. For example, the only way to find out if you have high blood pressure is to have it checked regularly. High blood sugar and high cholesterol level also may not have any symptoms in the early stages. Simple blood tests can check for these conditions. There are specific times when you should see your provider or receive specific health screenings. The [place] Preventive Services Task Force publishes a list of recommended screenings. Below are screening guidelines for men ages 40 to 64. BLOOD PRESSURE SCREENING Have your blood pressure checked at least once every year. Watch for blood pressure screenings in your area. Ask your provider if you can stop in to have your blood pressure checked. Ask your provider if you need your blood pressure checked more often if: You have diabetes, heart disease, kidney problems, or are overweight or have certain other health conditions You have a first-degree relative with high blood pressure You are Black Your blood pressure top number is from 120 to 129 mm Hg, or the bottom number is from 70 to 79 mm Hg If the top number is 130 mm Hg or greater or the bottom number is 80 mm Hg or greater, this is considered stage 1 hypertension. Schedule an appointment with your provider to learn how you can lower your blood pressure. Effects of age on blood pressure CHOLESTEROL SCREENING Cholesterol screening should begin at age 35 for men with no known risk factors for coronary heart disease. Repeat cholesterol screening should take place: Every 5 years for men with normal cholesterol levels More often if changes occur in lifestyle (including weight gain and diet) More often if you have diabetes, heart disease, kidney problems, or certain other conditions COLORECTAL CANCER SCREENING If you are under age 45, talk to your provider about getting screened. You may need to be screened if you have a strong family history of colon cancer or polyps. Screening may also be considered if you have risk factors such as a history of inflammatory bowel disease or polyps. If you are age 45 to 75, you should be screened for colorectal cancer. There are several screening tests available: A stool-based fecal occult blood (gFOBT) or fecal immunochemical test (FIT) every year A stool sDNA test every 1 to 3 years Flexible sigmoidoscopy every 5 years or every 10 years with stool testing FIT done every year CT colonography (virtual colonoscopy) every 5 years Colonoscopy every 10 years You may need a colonoscopy more often if you have risk factors for colorectal cancer, such as: Ulcerative colitis A personal or family history of colorectal cancer A history of growths in your colon called adenomatous polyps DENTAL EXAM Go to the dentist once or twice every year for an exam and cleaning. Your dentist will evaluate if you have a need for more frequent visits. DIABETES SCREENING All adults who do not have risk factors for diabetes should be screened starting at age 35 and repeated every 3 years. If you have other risk factors for diabetes, such as a first degree relative with diabetes, overweight or obesity, high blood pressure, prediabetes, or a history of heart disease, you may be tested more often. If you are overweight and have other risk factors, such as high blood pressure and are planning to become , screening is recommended. EYE EXAM Have an eye exam every 2 to 4 years ages 40 to 54 and every 1 to 3 years ages 55 to 64. Your provider may recommend more frequent eye exams if you have vision problems or glaucoma risk. Have an eye exam that includes an examination of your retina (back of your eye) at least every year if you have diabetes. IMMUNIZATIONS Commonly needed vaccines include: Flu shot: get one every year COVID-19 vaccine: ask your provider what is best for you Tetanus-diphtheria and acellular pertussis (Tdap) vaccine: have as one of your tetanus-diphtheria vaccines if you did not receive it as an adolescent Tetanus-diphtheria: have a booster (or Tdap) every 10 years Varicella vaccine: receive 2 doses if you never had chickenpox or the varicella vaccine and were born in 1979 or after Hepatitis B vaccine: receive 2, 3, or 4 doses, depending on your exact circumstances, if you did not receive these as a child or adolescent, until age 59 Shingles (herpes zoster) vaccine: at or after age 50 Ask your provider if you should receive other immunizations, especially if you have certain medical conditions, such as diabetes or are at increased risk for some diseases such as pneumonia. INFECTIOUS DISEASE SCREENING Screening for hepatitis C: all adults ages 18 to 79 should get a one-time test for hepatitis C. Screening for human immunodeficiency virus (HIV): all people ages 15 to 65 should get a one-time test for HIV. Depending on your lifestyle and medical history, you may need to be screened for infections such as syphilis, chlamydia, and other infections. LUNG CANCER SCREENING You should have an annual screening for lung cancer with low-dose computed tomography (LDCT) if: You are age 50 to 80 years AND You have a 20 pack-year smoking history AND You currently smoke or have quit within the past 15 years OSTEOPOROSIS SCREENING If you are age 50 to 64 and have risk factors for osteoporosis, you should discuss screening with your provider. Risk factors can include long-term steroid use, low body weight, smoking, heavy alcohol use, having a fracture after age 50, or a family history of hip fracture or osteoporosis. Osteoporosis PHYSICAL EXAM All adults should visit their provider from time to time, even if they are healthy. The purpose of these visits is to: Screen for diseases Assess risk of future medical problems Encourage a healthy lifestyle Update vaccinations and other preventive care services Maintain a relationship with a provider in case of an illness Your height, weight, and body mass index (BMI) should be checked at every exam. During your exam, your provider may ask you about: Depression and anxiety Diet and exercise Alcohol and tobacco use Safety, such as use of seat belts and smoke detectors Your medicines and risk for interactions PROSTATE CANCER SCREENING If you're 55 through 69 years old, before having the test, talk to your provider about the pros and cons of having a PSA test. Ask about: Whether screening decreases your chance of dying from prostate cancer. Whether there is any harm from prostate cancer screening, such as side effects from testing or overtreatment of cancer when discovered. Whether you have a higher risk of prostate cancer than others. If you are age 55 or younger, screening is not generally recommended. You should talk with your provider about if you have a higher risk for prostate cancer. Risk factors include: Having a family history of prostate cancer (especially a brother or father) Being If you choose to be tested, the PSA blood test is repeated over time (yearly or less often), though the best frequency is not known. Prostate examinations are no longer routinely done on men with no symptoms. Prostate cancer SKIN EXAM Your provider may check your skin for signs of skin cancer, especially if you're at high risk. People at high risk include those who have had skin cancer before, have close relatives with skin cancer, or have a weakened immune system. TESTICULAR EXAM The [place] Preventive Services Task Force (USPSTF) now recommends against performing testicular self-exams. Doing testicular self-exams has been shown to have little to no benefit. Quality Reporting (2019) Adult ([facility] 138//) Smoking risk assessment performed?: Yes Patient Tobacco Use Status: Never used Tobacco Depression screening performed: Yes Screen Results: Yes Negative screen Systolic BP not done?: No Diastolic BP not done?: No BMI screening not done: No Sexual Activity Screening ([facility] 153) Sexually active?: No Immunizations ([facility] 147, 117) Annual Influenza Vaccine: Yes Measles Antibody Test: No Mumps Antibody Test: No Rubella Antibody Test: No Varicella Antibody Test: No Anti Hepatitis A IgG Antigen test: No Anti Hepatitis B Virus Surface Ab test: No Fall Risk Screening ([facility] 139) Last assessed Fall Risk: 04/03/25 Fall risk assessment: No Falls in past year Dementia Assessment ([facility] 149) Cognitive assessment recorded: Yes Assessment of cognition with standardized tool: Yes Depression/Bipolar (159/160/161/177) PHQ-9: Total score: 0 Ophthalmol:Cataracts Visual Acuity (133) Visual acuity exam performed: No (PT DECLINED. ACTIVE W/ OUTSIDE OPTHO. WEARS GLASSES. UTD ON EXAMS. ) Coding Level of Care Code Medicare Subsequent (G0439) Est Pt Level 4 (22313) Diagnoses Encounter for subsequent annual wellness visit (AWV) in Medicare patient Z00.00 ACP (advance care planning) Z71.89 Pre-diabetes R73.03 Gastroesophageal reflux disease without esophagitis K21.9 Esophagitis presence: without esophagitis Benign prostatic hyperplasia without lower urinary tract symptoms N40.0 Lower urinary tract symptom presence: symptoms absent Elevated LDL cholesterol level E78.00 Macular degeneration of both eyes H35.30 Nonexudative macular degeneration stage: unspecified stage Left anterior fascicular block (LAFB) determined by electrocardiography I44.4 Impacted cerumen, bilateral H61.23 CPT Codes Advance Care Planning - Time spent: 1-15 minutes, not on file ([id number]) Office Procedure - CPT: 02246-Skx Irrigation/Lavage ([id number]) EKG - CPT: 97948-[id number], Complete ([id number]) Vision Screening - Vision Screenin - Vision Screening ([id number]) Additional Codes PHQ-9 - 01498 - PHQ-9 Billing: Yes ([id number]) Advance Care Planning Advance Care Planning discussion: Declined forms Date of discussion: 04/03/25 Forms completed: None Time spent: 1-15 minutes, not on file Actual minutes spent: 5
[2025-04-03 08:15] VITALS: BP 142/78; PULSE 75; RESP 13; TEMP 36.2; O2SAT 98; BMI 27.2
[2025-04-03 08:55] VITALS: BP 136/74
== END 2025-04-03 09:10 | disposition home or self-care (01) ==
LOC: HO.HMCFM 08:01
PROVIDERS: PCP Family Medicine; Visit Provider Nurse Practitioner Family
DX: R73.03 Prediabetes (principal); K21.9 Gastro-esophageal reflux disease without esophagitis; N40.0 Benign prostatic hyperplasia without lower urinary tract symptoms; E78.00 Pure hypercholesterolemia, unspecified; H35.30 Unspecified macular degeneration; I44.4 Left anterior fascicular block; Z71.89 Other specified counseling; H61.23 Impacted cerumen, bilateral; Z00.00 Encounter for general adult medical examination without abnormal findings